=== PATIENT | female | born 1940 | race Caucasian/White ===

== ENCOUNTER 2016-07-18 09:05 | Inpatient (IN) | payer MEDICARE, OTHER ==
[~2016-07-18] VITALS: Ht 170.2 cm; Wt 114.0 kg
[2016-07-18 09:29] VITALS: BP 100/61; PULSE 68; RESP 20; O2SAT 93
[2016-07-18] MEDS ORDERED: ALBU90AE IH (10:08)
[2016-07-18] MEDS ORDERED: MORP30TA PO (10:08)
[2016-07-18] MEDS ORDERED: ZLP10T PO (10:08)
[2016-07-18] MEDS ORDERED: WARF6TAB6 PO (10:08)
[2016-07-18] MEDS ORDERED: FERR-83 PO (10:08)
[2016-07-18] MEDS ORDERED: METO25TA6 PO (10:08)
[2016-07-18] MEDS ORDERED: DIPH25CA6 PO (10:08)
[2016-07-18] MEDS ORDERED: HYDR-3740 PO (10:08)
[2016-07-18] MEDS ORDERED: ATRV10T PO (10:08)
[2016-07-18] MEDS ORDERED: GABA-502 PO (10:08)
[2016-07-18] MEDS ORDERED: LISI-571 PO (10:08)
[2016-07-18] MEDS ORDERED: METF500T4 PO (10:08)
[2016-07-18] MEDS ORDERED: FURO-128 PO (10:08)
[2016-07-18] MEDS ORDERED: CYAN500 PO (10:08)
[2016-07-18] MEDS ORDERED: MORP15TA PO (10:08)
[2016-07-18] MEDS ORDERED: ROPI2TAB3 PO (10:08)
[2016-07-18] MEDS ORDERED: ASPI-973 PO (10:08)
--- NOTE | 2016-07-18 10:17 | ED.REPORT ---
HPI-Hip/Pelvis Prob/Inj Date of Service Jul 18, 2016 ED Provider: Doc,Ed MD The patient is a 76 year old female with history of congestive heart failure, atrial fibrillation on warfarin, hypertension, COPD, and colon cancer, who was brought to the emergency department by EMS for right hip pain. The patient had a ground level fall at home prior to arrival. Her left leg gave out causing her to fall and she landed on her right shoulder/chest and right hip. She did not hit her head or lose consciousness. She was unable to get herself up on her own and remained on the floor until medics arrived. She did not experience dizziness , lightheadedness, chest pain or shortness of breath prior to the fall. She is currently being evaluated by her PCP for chronic left hip pain and lower extremity numbness, and was told she has sciatica. She denies focal weakness, bladder incontinence or bowel incontinence. Nursing Notes Stated Complaint: GLF/HIP PAIN Chief Complaint: Multiple Trauma/Fall Nursing Notes Reviewed: Yes ([employer] reconciled ) Allergies: Coded Allergies: No Known Allergies (Unverified , 07/18/16) Scheduled Aspirin (Aspirin) 81 Mg Tablet 81 MG PO DAILY Atorvastatin (Lipitor) 10 Mg Tab 10 MG PO HS Cyanocobalamin (Vitamin B12) 500 Mcg Tablet 1,000 MCG PO DAILY Ferrous Sulfate (Ferrous Sulfate) 325 Mg Tablet 325 MG PO DAILY Furosemide (Lasix) 40 Mg Tablet 40 MG PO DAILY Gabapentin (Gabapentin) 300 Mg Capsule 300 MG PO DAILY 1 every three days Lisinopril (Lisinopril) 5 Mg Tablet 5 MG PO DAILY Metformin (Metformin) 500 Mg Tablet 500 MG PO Evening Metoprolol Tartrate (Metoprolol Tartrate) 25 Mg Tablet 12.5 MG PO BID Morphine Sulfate (Morphine Sulfate) 30 Mg Tablet 30 MG PO TID Morphine Sulfate (Morphine Sulfate) 15 Mg Tablet 15 MG PO TID Ropinirole (Ropinirole) 2 Mg Tablet 2 MG PO HS Warfarin Sodium (Warfarin Sodium) 6 Mg Tablet 6 MG PO DAILY Scheduled PRN Albuterol Sulfate (Proair Respiclick) 90 Mcg Aer.pow.ba 2 PUFFS IH QID PRN PRN For Shortness of Breath Hydrocodone-Acetaminophen 10-325 mg (Hydrocodone-Acetaminophen 10-325 mg) 1 Each Tablet 2 TABLET PO Q4H PRN PRN For Pain Zolpidem (Ambien) 10 Mg Tablet 10 MG PO HS PRN PRN For Insomnia diphenhydrAMINE HCl (Benadryl) 25 Mg Capsule 25 MG PO PRN . General Time Seen by Provider: 10:33 Chief Complaint Hip injury right Hx Obtained From: Patient, EMS Arrived By: Ambulance Onset Occurred: 1 - 4 hours ago Symptom Duration: Since onset Progression Since Onset: Constant Caused by: Fall on ground Quality: Painful Severity: Current: Moderate Severity: Maximum: Severe Recent Healthcare: No recent hospitalization Similar Sx Previous: No Past Medical History Past Medical History COPD CHF Hypertension Colon cancer Chronic back, hip, and knee pain Sciatica Atrial fibrillation Past Surgical History Lung biopsy Hysterectomy Appendectomy Cholecystectomy Family History Noncontributory Smoking History Unknown if Ever Smoker Social History Other Social History: Local resident Ambulatory Status Independent Review of Systems Musculoskeletal: Reports: Extremity pain, Joint pain Neurologic: Reports: Numbness (left leg), Denies: Bladder dysfunction, Bowel dysfunction, Change LOC, Dizziness, Focal weakness, Headache, Lightheaded, Syncope Complete sys rev & neg: except as marked. Respiratory: Denies: Shortness of breath Cardiovascular: Denies: Chest pain Physical Exam Initial Vital Signs Vital Signs (First) Date Time Temp Pulse Resp B/P Pulse Ox O2 Delivery O2 Flow Rate FiO2 07/18/16 09:29 36.6 68 20 100/61 93 Room Air Initial VS: Reviewed, Vital signs normal ENT: Mucous membranes moist, Conjunctiva normal, No scleral icterus Neck: Supple, Non-tender, Full range of motion Lymphatic: No lymphadenopathy Upper Extremities: Vascular intact, Neuro intact, No swelling, No tenderness Skin: Warm, Dry, No cyanosis Neurologic: Alert, Oriented, Nonfocal Psychiatric: Mood/affect normal, Behavior normal, Normal thought content Lower Extremity / Pelvis / MS: Neurologic intact, Vascular intact Shortened externally rotated right hip with extreme pain with any movement including pain on the right hip with movement of the left leg. She is able to move her left leg off the [place] but this causes pain on the right hip. Intact plantar and dorsiflexion. Sensation intact. Venous stasis changes in both feet with good pulses. General/Constitutional: Awake, Alert In significant pain. Head / Eyes: Atraumatic, Normocephalic, PERRL, EOMI No visible signs of trauma to the head. Respiratory / Chest: Atraumatic, Breath sounds NL, Breath sounds = bilat, No respiratory distress, No rales, No rhonchi, No wheezing, No chest tenderness, No chest wall deformity No bruising or evidence of trauma Cardiovascular: Heart rate NL, Heart sounds NL, No murmurs, No rubs, Peripheral circulation NL, Pulses = bilaterally Heart Rate / Rhythm: Positive: Irregular rhythm Abdomen: Atraumatic, Soft, Non-tender, No guarding, No rebound Interpretation & Diagnostics Lab Results Interpretation Result Diagram: 07/18/16 1112 07/18/16 1112 Test 07/18/16 10:51 07/18/16 11:12 Urine Color Straw (YELLOW) Urine Appearance Hazy (CLEAR,HAZY) Urine pH 5.5 (5.0-8.0) Urine Specific [place] 1.015 (1.003-1.035) Urine Protein Negativemg/dL (NEG,TRACE) Urine Glucose (UA) Negativemg/dL (NEGATIVE) Urine Ketones Negativemg/dL (NEGATIVE) Urine Occult Blood Negative (NEGATIVE) Urine Nitrite Negative (NEGATIVE) Urine Bilirubin Negative (NEGATIVE) Urine Urobilinogen Normalmg/dL (NORMAL) Urine Leukocyte Esterase Negative (NEGATIVE) Urine RBC 0-2/hpf (0-2) Urine WBC 0-5/hpf (0-5) Urine Epithelial Cells Occasional/hpf (NONE-MOD) Urine Crystals None seen (NONE SEEN) Urine Bacteria None/hpf (NONE-FEW) Urine Hyaline Casts 5/20/lpf (NONE) Urine Granular Casts None seen (NONE SEEN) Urine Waxy Casts None seen (NONE SEEN) Urine Red Blood Cell Casts None seen (NONE SEEN) Urine White Blood Cell Casts None seen (NONE SEEN) Urine Mucus Present (None Seen) Urine Trichomonas None seen (NONE SEEN) Urine Yeast None (NONE SEEN) Urinalysis Comment None Urine Culture Reflexed Not indicated White Blood Count 6.8th/mm3 (3.8-10.1) Red Blood Count 4.59mil/mm3 (3.90-5.20) Hemoglobin 12.4g/dL (12.0-15.6) Hematocrit 39.9% (35.0-46.0) Mean Corpuscular Volume 86.9fL (81-100) Mean Corpuscular Hemoglobin 27.0pg (27.0-35.0) Mean Corpuscular Hemoglobin Concent 31.1% (32.0-37.0) Red Cell Distribution Width 15.6% (12.3-15.4) Platelet Count 220bil/L (150-400) Neutrophils (%) (Auto) 69.6% (40-74) Lymphocytes (%) (Auto) 19.2% (14-46) Monocytes (%) (Auto) 7.7% (4-12) Eosinophils (%) (Auto) 2.7% (0-5) Basophils (%) (Auto) 0.4% (0-3) Prothrombin Time 27.2sec (8.1-12.5) Prothromb Time International Ratio 2.50ratio Sodium Level 140mEq/L (134-144) Potassium Level 4.1mEq/L (3.5-5.2) Chloride Level 101mEq/L (97-108) Carbon Dioxide Level 26mmol/L (18-29) Blood Urea Nitrogen 36mg/dL (8-27) Creatinine 1.13mg/dL (0.57-1.00) Estimat Glomerular Filtration Rate 67mL/min (>59) Glucose Level 102mg/dL (60-99) Calcium Level 9.4mg/dL (8.5-10.1) Total Bilirubin 0.8mg/dL (0.0-1.2) Aspartate Amino Transf (AST/SGOT) 36U/L (0-50) Alanine Aminotransferase (ALT/SGPT) 20U/L (0-32) Alkaline Phosphatase 202U/L (25-165) Total Creatine Kinase 101U/L (21-215) Total Protein 6.0g/dL (6.4-8.4) Albumin 3.6g/dL (3.4-5.0) Hold Javed Top Tube Received (Received) Lab Results Interpretation: CBC normal CMP normal INR elevated (therapeutic INR) ECG Interpretation ECG Interpretation: Atrial fibrillation with a rate of 63 Time: 11:01 Interpreted by: ED physician X-Ray Chest Interpretation Chest Xray Interpretation: IMPRESSION: No acute cardiopulmonary disease process. Dictated by: Daniela Diane MD, PhD on 07/18/2016 at 10:43 Interpretation / Wet Read by: Interpret - Radiologist X-Ray Interpretation Xray Interpretation: IMPRESSION: Right subtrochanteric femur fracture. Dictated by: Daniela Diane MD, PhD on 07/18/2016 at 10:42 X-Ray Ordered: Hip right Interpretation / Wet Read by: Interpret - Radiologist Re-Eval/Medical Decision Med Decision/Clinical Course This is a 76-year-old female chronic atrial fibrillation on warfarin who suffered a fall and now complains of right hip pain. She reports the reason for the fall is that over the past 2 weeks she has developed what sounds like sciatica with pain in the left buttock down the left leg with some associated numbness, and today her left leg "gave out" and she fell landing on her right hip. Reports she struck her right shoulder on the way down but does not have any pain or discomfort there-allover pain is in the right hip. She has chronic severe right hip pain and is on opiates routinely, she also has spinal stenosis. She denies bowel or bladder dysfunction. She denies striking her head, she has no neck pain, she denies chest pain or shortness of breath. On exam she has focal findings a right hip fracture, no overt deficits in the left leg are appreciated. She is in rate controlled atrial fibrillation. Radiographs demonstrated right intertrochanteric hip fracture. Case has been discussed with orthopedics, given the patient's anticoagulated reversal's warranted. Given the patient's age and anticoagulant status with new onset sciatica MRI imaging or lumbar spine is anticipated and this been ordered. The patient requires admission for continued management. Surgery for the hip is anticipated for tomorrow, patient can eat up until midnight tonight. Case is discussed with the hospitalist, vincent talbot pain medicine in the department for improved pain control. Grove has been placed. Source of Hx: Old records, EMS Re-Evaluation/Progress : Time of Eval: 10:52 Re-Evaluation/Progress Note: Rechecked the patient. Discussed results, diagnosis, and plan for admission. All questions were addressed. Consultation #1: Referral / Consult Name: Sourav Calvin DO Consulted With: Orthopedic Call Returned at: 10:45 Senior Technical Editor: Will see patient, Agrees with eval, Agrees with plan Consultation #2: Referral / Consult Name: Megan Crespo DO Consulted With: Hospitalist Call Returned at: 11:51 Senior Technical Editor: Will see patient, Agrees with eval, Agrees with plan, Accepts admit Counseled Regarding: Diagnosis, Lab results, Need for admission Discharge & Departure Impression: Primary Impression: Subtrochanteric fracture of femur Encounter type: initial encounter Fracture type: closed Fracture alignment : displaced Laterality: right Qualified Code: S72.21XA - Displaced subtrochanteric fracture of right femur, initial encounter for closed fracture Additional Impressions: Fall from ground level Left sided sciatica Anticoagulated on warfarin Atrial fibrillation, chronic Disposition: ADMITTED TO HOSPITAL Discharge Condition All VS Reviewed: Yes Condition: Stable Referrals: Arabella Ball (PCP) Martha Cantu MD Attestation Portions of this note were transcribed by Megan Combs. I, Dr. Cummings personally performed the history, physical exam and medical decision-making; I reviewed and confirmed the accuracy of the information in the transcribed note. Signed by: Dania Hamilton, 07/18/2016 at 1200. copies to: Arabella Ball; Martha Cantu MD, Matthew F MD Jul 18, 2016 10:17 Megan Combs Jul 18, 2016 10:38
[2016-07-18] MEDS ORDERED: Ondansetron 2 mg/mL 2 mL Inj IVPUSH ONE (10:30)
[2016-07-18] MEDS: HYDROmorphone 0.5 mg/0.5 mL iSecure Syringe IVPUSH PRN ×2 (10:35→10:53)
--- NOTE | 2016-07-18 10:45 | DRSVH ---
PROCEDURE: X-RAY PELVIS W/LAT HIP (RT) ([id number]) INDICATIONS: fall; rt hip pain TECHNIQUE: AP pelvis with lateral view(s) of the right hip(s). COMPARISON: None. FINDINGS: Bones: Displaced right subtrochanteric hip fracture noted. Bilateral hip osteoarthritic degenerative changes are noted. Pelvic ring appears intact. No suspicious bony lesions. Soft tissues: The visualized bowel gas pattern is normal. No suspicious soft tissue calcifications. Bilateral groin surgical clips noted. IMPRESSION: Right subtrochanteric femur fracture. Dictated by: Daniela Diane MD, PhD on 07/18/2016 at 10:42 Approved by: Daniela Diane MD, PhD on 07/18/2016 at 10:43
--- NOTE | 2016-07-18 10:46 | DRSVH ---
PROCEDURE: X-RAY CHEST ONE VIEW ([id number]) INDICATIONS: HIP FRACTURE TECHNIQUE: One view of the chest was acquired. COMPARISON: [facility], CR, XR CHEST 1V PORTABLE, 03/25/2016, 1:24 AM. [facility], CT, CT BIOPSY LUNG, 06/10/2016, 1:47 PM. [facility], CR, XR CHEST 1V PORTABLE , 06/11/2016, 7:41 AM. FINDINGS: Surgical changes and devices: Surgical clips at the gastroesophageal junction. Lungs and pleura: No pleural effusions or pneumothorax. Lungs are clear. Elevation of the right hem idiaphragm is stable compared to prior examination. Mediastinum: Mediastinal contours appear normal. Heart size is normal. Bones and chest wall: No suspicious bony lesions. Overlying soft tissues appear unremarkable. IMPRESSION: No acute cardiopulmonary disease process. Dictated by: Daniela Diane MD, PhD on 07/18/2016 at 10:43 Approved by: Daniela Diane MD, PhD on 07/18/2016 at 10:44
[2016-07-18] MEDS ORDERED: Lidocaine 2% 5 mL Urojet Topical Jelly Syringe MUC_MEMBRM ONE (10:50)
[2016-07-18] MEDS ORDERED: LIDOCAINE 2% MUC_MEMBRM ONE (10:55)
[2016-07-18] MEDS: HYDROmorphone 1 mg/mL Inj IVPUSH PRN ×3 (11:04→17:47)
[2016-07-18 11:34] LABS: BASOPHILS % (AUTO) 0.4 % (0-3); EOSINOPHILS % (AUTO) 2.7 % (0-5); MONOCYTES % (AUTO) 7.7 % (4-12); Mean Corpuscular Volume 86.9 fL (81-100); NEUTROPHILS % (AUTO) 69.6 % (40-74); Platelet Count 220 bil/L (150-400)
[2016-07-18 11:47] LABS: INR 2.5 ratio
[2016-07-18 11:49] LABS: APPEARANCE,URINE HAZY (CLEAR,HAZY); COLOR,URINE STRAW (YELLOW); OCCULT BLOOD,URINE NEGATIVE (NEGATIVE); PH,URINE 5.5 (5.0-8.0); UROBILINOGEN,URINE NORMAL (NORMAL)
[2016-07-18] MEDS ORDERED: 0.9% Sodium Chloride 250 ML IV ONE (12:10)
[2016-07-18] MEDS ORDERED: Phytonadione (Adult) 10 mg/1 mL Inj PO ONE (12:15)
[2016-07-18] MEDS ORDERED: Phytonadione (Adult) 10 MG in Dextrose 5%-Pha MIX 50 ML IV ONE (12:15)
[2016-07-18] MEDS ORDERED: Polyethylene Glycol (PEG) 17 Gm Powder PO PRN (12:25)
[2016-07-18] MEDS ORDERED: Ondansetron 2 mg/mL 2 mL Inj IVPUSH PRN (12:25)
[2016-07-18] MEDS ORDERED: Alum-Mag Hydrox-Simeth 30 mL Suspension PO PRN (12:25)
[2016-07-18] MEDS ORDERED: Albuterol 2.5 mg/3 mL Inhalation Solution NEB PRN (12:40)
[2016-07-18] MEDS ORDERED: HYDROcodone-APAP 10-325 mg PO PRN (12:40)
--- NOTE | 2016-07-18 12:54 | PCM.HPMED ---
Subjective Date of Service Jul 18, 2016 Primary Provider: Admitting Physician: Megan Crespo DO Primary Care Physician: Arabella Ball Attending Physician: Megan Crespo DO Chief Complaint: R subtrochanteric femur fracture History of Present Illness: This is a pleasant 76-year-old female with past medical history of A. fib for which she is currently on Coumadin, diabetes mellitus type II for which she is not on any particular diet, CAD, CHF, hypertension, COPD, chronic pain medication usage due to chronic pain syndrome is presenting with right hip subtrochanteric femoral fracture as seen on x-ray of pelvis in the ER. She states that she has had issues with left leg and sciatica for a long time now and she was trying to walk and fell on her right side. Pain was 10 out of 10 but in the ER it was 8 out of 10. Fell on her right side shoulder and chest were affected as well. She usually tries to walk with a walker at home. Lives with son and his family. She says that she has suffered several falls but none as bad as this one and also none in the last 6 months. In the ER INR was 2.5 vitamin K by mouth 10 mg was given chest x-ray was showed no acute disease EKG showed rate controlled A. fib. MRI of lumbar spine showed scoliosis, Grade I L3-L4 and L4-5 degenerative spondylolisthesis. ,Multilevel degenerative disc disease, Multilevel facet arthropathy. Severe L4- L5 central canal stenosis. Moderate to severe L3-L4 central canal narrowing. Moderate L5-S1 central are present mild L1-L2 and L2-L3 central canal narrowing. Severe right and moderate severe left L4-L5 neural foramen. Severe right and mild left L5-S1 neural foraminal narrowing. Moderate bilateral L2-L4 neural foraminal narrowing. Mild bilateral L1-L2 and L2-L3 neuroforaminal narrowing. L2-L3 and L4-L5 disc annulus fissures. Fluid signal in the L3-L4 disc space likely representing a reactive change, however finding is nonspecific and correlation with clinical laboratory data is recommended to exclude a very early manifestation of discitis. CBC and CMP are within normal. Vital signs are stable. Patient is admitted to the [facility] team for medical management of her right femur subtrochanteric fracture with orthopedic consult. Review of Systems: Patient denies urinary symptoms states that she is often constipated. She denies recent fevers chills or recent weight loss or weight gain. She denies numbness in her lower extremities. All other review of systems negative except as stated here Allergies Coded Allergies: No Known Allergies (Unverified , 07/18/16) Home Medications Medications include aspirin, vitamin B12, vitamin supplements, Benadryl, Lasix, lisinopril, metoprolol, metformin, ropinirole, Coumadin, Ambien, gabapentin, albuterol, morphine sulfate extended release, Narco and Xanax. PMH Atrial fibrillation on Coumadin, DM 2, CAD, insomnia, CHF, hypertension, COPD, constipation, recurrent UTIs spinal stenosis, DJD Surgical History Lung biopsy, cystectomy, appendectomy, cholecystectomy Social History Hx Alcohol Use: No Hx Tobacco Use: Yes Smoking Status: Light Tobacco Smoker, Unknown if Ever Smoker Living Arrangement: with Family (visit son and his family) Exam Vital Signs Vital Sign - Last Date Time Temp Pulse Resp B/P Pulse Ox O2 Delivery O2 Flow Rate FiO2 07/18/16 09:29 36.6 68 20 100/61 93 Room Air Exam Gen.: No acute distress, obese HEENT: Normocephalic/atraumatic Heart: Regular rate and rhythm no S3-S4 Lungs clear to auscultation anteriorly crackles or wheezes Abdomen: Soft, nontender, normal bowel sounds Extremities: Trace edema is present Neuro: No focal deficits Lab and Diagnostics Result Diagram: 07/18/16 1112 07/18/16 1112 X-Rays, CTs and MRIs [facility] Diagnostic Imaging Department [place], [place] [id number] Patient Name: ANNABEL HUGHES MR#: [id number] Location: [facility] [place] Ordering Phys: Bryant Cummings MD Date of Service: 07/18/16 1047 PROCEDURE: MRI LUMBAR SPINE WITHOUT CONTRAST ([id number]) INDICATIONS: New L Sciatica, anticoagulated TECHNIQUE: Noncontrast sagittal T1 spin echo and T2 fast echo, sagittal STIR, axial T1 and T2 fast spin echo through the lumbar spine. In cases with scoliosis, additional coronal T2 fast spin echo may be performed. COMPARISON: None. FINDINGS: Image quality: Excellent. Alignment and Curvature: There is trace L3 on L4 and L4-L5 retrolisthesis. There is convex right curvature of the lumbar spine; recommend correlation with weight-bearing plain film radiographs to exclude scoliosis. Bone Marrow: Changes noted adjacent to the L2-L3, L3-L4, L4-L5 and L5-S1 discs.. No acute vertebral body compression fractures. Spinal Cord: Conus medullaris terminates at the L1 level. Visualized cord demonstrates normal signal and size. Paraspinous Soft Tissues: No paravertebral masses. L1-L2: Loss of disc signal. Mild bilateral facet hypertrophy. Moderate ligamentum flavum hypertrophy. Mild narrowing of the central canal secondary to disc disease mild bilateral neural foraminal narrowing secondary to disc and facet disease. No neural impingement. L2-L3: Loss of disc signal. Minimal, diffuse disc bulge. Moderate facet and moderate ligamentum flavum hypertrophy. Mild to moderate narrowing of the central canal secondary to disc disease and posterior element hypertrophy. Mild bilateral neuroforaminal narrowing secondary to disc and facet disease. No neural impingement. Focal high density zone in the anterior annulus compatible with a fissure. L3-L4: Loss of disc signal and height. Moderate, diffuse disc bulge. Moderate facet and moderate ligamentum flavum hypertrophy. Moderate to severe narrowing of the central canal secondary to disc disease and posterior element hypertrophy. Moderate bilateral neuroforaminal narrowing secondary to disc and facet disease. Fluid signal noted in the intervertebral disc space which can represent reactive change versus earliest manifestation of discitis; please correlate clinical and laboratory data. L4-L5: Loss of disc signal. Mild, diffuse disc bulge. Large central disc protrusion superimposed on diffuse disc bulge. Moderate facet and moderate ligamentum flavum hypertrophy. Severe central stenosis secondary to disc disease and posterior element hypertrophy. Severe right and [id number] left neural foraminal narrowing secondary to disc and facet disease. Focal high density zone in the anterior annulus compatible with a fissure. L5-S1: Loss of disc signal. Mild, diffuse disc bulge with small central disc protrusion superimposed on diffuse disc bulge. Severe facet and moderate ligamentum flavum hypertrophy. Moderate narrowing of the central canal secondary to disc disease and posterior element hypertrophy. Severe right and mild left neural foraminal narrowing secondary to disc and facet disease. IMPRESSION: 1. Convex right curvature recommend weight-bearing plain film radiographs of the lumbar spine when clinically feasible to exclude scoliosis. 2. Grade I L3-L4 and L4-5 degenerative spondylolisthesis. 3. Multilevel degenerative disc disease. 4. Multilevel facet arthropathy. 5. Severe L4-L5 central canal stenosis. Moderate to severe L3-L4 central canal narrowing. Moderate L5-S1 central are present mild L1-L2 and L2-L3 central canal narrowing. 6. Severe right and moderate severe left L4-L5 neural foramen. Severe right and mild left L5-S1 neural foraminal narrowing. Moderate bilateral L2-L4 neural foraminal narrowing. Mild bilateral L1-L2 and L2-L3 neuroforaminal narrowing. 7. L2-L3 and L4-L5 disc annulus fissures. 8. Fluid signal in the L3-L4 disc space likely representing a reactive change, however finding is nonspecific and correlation with clinical laboratory data is recommended to exclude a very early manifestation of discitis. Dictated by: Daniela Diane MD, PhD on 07/18/2016 at 15:04 Approved by: Daniela Diane MD, PhD on 07/18/2016 at 15:12 [facility] [place] [address] Patient Name: ANNABEL HUGHES MR#: [id number] [place] [facility] [place]ing Phys: Bryant Cummings MD Date of Service: 07/18/16 1013 PROCEDURE: X-RAY CHEST ONE VIEW ([id number]) INDICATIONS: HIP FRACTURE TECHNIQUE: One view of the chest was acquired. COMPARISON: [facility], CR, XR CHEST 1V PORTABLE, 03/25/2016, 1: 24 AM. [facility], CT, CT BIOPSY LUNG, 06/10/2016, 1:47 PM. [facility], CR, XR CHEST 1V PORTABLE, 06/11/2016, 7:41 AM. FINDINGS: Surgical changes and devices: Surgical clips at the gastroesophageal junction. Lungs and pleura: No pleural effusions or pneumothorax. Lungs are clear. Elevation of the right hemidiaphragm is stable compared to prior examination. Mediastinum: Mediastinal contours appear normal. Heart size is normal. Bones and chest wall: No suspicious bony lesions. Overlying soft tissues appear unremarkable. IMPRESSION: No acute cardiopulmonary disease process. Dictated by: Daniela Diane MD, PhD on 07/18/2016 at 10:43 Approved by: Daniela Diane MD, PhD on 07/18/2016 at 10:44 [facility] Diagnostic [place] [address] Patient Name: ANNABEL HUGHES MR#: [id number] [place] [facility] [place]ing Phys: URIAH TIMMONS MD Date of Service: 07/18/16 0953 PROCEDURE: X-RAY PELVIS W/LAT HIP (RT) ([id number]) INDICATIONS: fall; rt hip pain TECHNIQUE: AP pelvis with lateral view(s) of the right hip(s). COMPARISON: None. FINDINGS: Bones: Displaced right subtrochanteric hip fracture noted. Bilateral hip osteoarthritic degenerative changes are noted. Pelvic ring appears intact. No suspicious bony lesions. Soft tissues: The visualized bowel gas pattern is normal. No suspicious soft tissue calcifications. Bilateral groin surgical clips noted. IMPRESSION: Right subtrochanteric femur fracture. Dictated by: Daniela Diane MD, PhD on 07/18/2016 at 10:42 Approved by: Daniela Diane MD, PhD on 07/18/2016 at 10:43 12-lead ECG Rate controlled A. fib Cardiac Echo Impressions Cardiac echo is pending Assessment & Plan Assessment #1 right femur subtrochanteric fracture as evidenced by the x-ray: -- Consult orthopedics. They may take patient to work tomorrow a.m. -- Pain control with Dilaudid pump initial settings were increased due to patient's findings on the scans as well as due to her high tolerance for pain medications -- INR is 2.5 in the ER vitamin K by mouth 10 mg is given, follow-up INR is only 2.4 slightly better. She is given 2 units of FFP -Echocardiogram is ordered due to prior cardiac history results is also pending -- Nothing by mouth diet after midnight -- Plan to recheck INR tomorrow. Consider giving more FFP as needed Chronic conditions: Severe central canal stenosis as evidenced by the lumbar MRI: -- We will discuss this findings with orthopedics tomorrow a.m. Chronic pain syndrome: -- Most likely due to the above findings as evidenced by the lumbar MRI. -- Patient is not very clear on how frequently she takes her home morphine most of which is i--IR formulation. She states that she did not fill them recently because she does not take them all the time. -- Dilaudid pump as above Anxiety: Continue Xanax home with home medication Chronic atrial fibrillation: Hold Coumadin Chronic hypertension -- Continue home medications. Tomorrow a.m. hold medications except metoprolol CAD: -- Continue home medications. Hold all medications except metoprolol -- Echo is pending as above COPD: -- Plan to continue home medications DM 2: -- She declined diabetic diet disease on general diet -- Sliding scale low coverage Plan to continue most of her home medications with the exception of aspirin and warfarin. The surgery Pain Evaluation: Adequate Pain Control VTE Prophylaxis Indicated: Contraindicated VTE Mechanical Devices: Intermittant Pneumatic CD, Anti-Embolic stockings Resuscitation Status: CPR: Attempt Resuscitation Megan Crespo DO Jul 18, 2016 12:54
[2016-07-18] MEDS ORDERED: Glucose 40% Oral Gel 15 Gm Tube PO PRN (12:55)
[2016-07-18 13:51] VITALS: BP 124/56; PULSE 77; RESP 20; O2SAT 93
--- NOTE | 2016-07-18 15:14 | DRSVH ---
PROCEDURE: MRI LUMBAR SPINE WITHOUT CONTRAST ([id number]) INDICATIONS: New L Sciatica, anticoagulated TECHNIQUE: Noncontrast sagittal T1 spin echo and T2 fast echo, sagittal STIR, axial T1 and T2 fast spin echo thr ough the lumbar spine. In cases with scoliosis, additional coronal T2 fast spin echo may be performe d. COMPARISON: None. FINDINGS: Image quality: Excellent. Alignment and Curvature: There is trace L3 on L4 and L4-L5 retrolisthesis. There is convex right cur vature of the lumbar spine; recommend correlation with weight-bearing plain film radiographs to exclu de scoliosis. Bone Marrow: Changes noted adjacent to the L2-L3, L3-L4, L4-L5 and L5-S1 discs.. No acute vertebral body compression fractures. Spinal Cord: Conus medullaris terminates at the L1 level. Visualized cord demonstrates normal signa l and size. Paraspinous Soft Tissues: No paravertebral masses. L1-L2: Loss of disc signal. Mild bilateral facet hypertrophy. Moderate ligamentum flavum hypertrophy. Mild narrowing of the central canal secondary to disc disease mild bilateral neural foraminal narrow ing secondary to disc and facet disease. No neural impingement. L2-L3: Loss of disc signal. Minimal, diffuse disc bulge. Moderate facet and moderate ligamentum flavu m hypertrophy. Mild to moderate narrowing of the central canal secondary to disc disease and posterio r element hypertrophy. Mild bilateral neuroforaminal narrowing secondary to disc and facet disease. N o neural impingement. Focal high density zone in the anterior annulus compatible with a fissure. L3-L4: Loss of disc signal and height. Moderate, diffuse disc bulge. Moderate facet and moderate liga mentum flavum hypertrophy. Moderate to severe narrowing of the central canal secondary to disc diseas e and posterior element hypertrophy. Moderate bilateral neuroforaminal narrowing secondary to disc an d facet disease. Fluid signal noted in the intervertebral disc space which can represent reactive milagros nge versus earliest manifestation of discitis; please correlate clinical and laboratory data. L4-L5: Loss of disc signal. Mild, diffuse disc bulge. Large central disc protrusion superimposed on d iffuse disc bulge. Moderate facet and moderate ligamentum flavum hypertrophy. Severe central stenosis secondary to disc disease and posterior element hypertrophy. Severe right and incryuvx-[id number]-wtfqnk lef t neural foraminal narrowing secondary to disc and facet disease. Focal high density zone in the ante rior annulus compatible with a fissure. L5-S1: Loss of disc signal. Mild, diffuse disc bulge with small central disc protrusion superimposed on diffuse disc bulge. Severe facet and moderate ligamentum flavum hypertrophy. Moderate narrowing of the central canal secondary to disc disease and posterior element hypertrophy. Severe right and mild left neural foraminal narrowing secondary to disc and facet disease. IMPRESSION: 1. Convex right curvature recommend weight-bearing plain film radiographs of the lumbar spine when cl inically feasible to exclude scoliosis. 2. Grade I L3-L4 and L4-5 degenerative spondylolisthesis. 3. Multilevel degenerative disc disease. 4. Multilevel facet arthropathy. 5. Severe L4-L5 central canal stenosis. Moderate to severe L3-L4 central canal narrowing. Moderate L5 -S1 central are present mild L1-L2 and L2-L3 central canal narrowing. 6. Severe right and moderate severe left L4-L5 neural foramen. Severe right and mild left L5-S1 neura l foraminal narrowing. Moderate bilateral L2-L4 neural foraminal narrowing. Mild bilateral L1-L2 and L2-L3 neuroforaminal narrowing. 7. L2-L3 and L4-L5 disc annulus fissures. 8. Fluid signal in the L3-L4 disc space likely representing a reactive change, however finding is non specific and correlation with clinical laboratory data is recommended to exclude a very early manifes tation of discitis. Dictated by: Daniela Diane MD, PhD on 07/18/2016 at 15:04 Approved by: Daniela Diane MD, PhD on 07/18/2016 at 15:12
[2016-07-18] MEDS ORDERED: HYDROmorphone 1 mg/mL Inj IVPUSH PRN (15:40)
[2016-07-18] MEDS ORDERED: HYDROcodone-APAP 5-325 mg Tablet PO PRN (15:45)
[2016-07-18 16:30] LABS: INR 2.46 ratio
[2016-07-18] MEDS: Insulin LISPRO 300 Unit/3 mL Inj SUBQ SCH ×2 (17:30→22:00)
[2016-07-18 17:31] VITALS: PULSE 63
[2016-07-18 18:14] VITALS: BP 92/47; PULSE 61; RESP 16; O2SAT 89
--- NOTE | 2016-07-18 18:24 | NUR ---
Admission Pt to floor at 1330 from ED with hip fx. Report from Gloria Prieto RN. Pt on gurney and slide board used to transfer pt to bed. Pt still has sheets under her and declined to have them removed because she didn't want to turn with fx. Pt on RA, s/l. Multiple bruises on arms. Pain under control / medication given in ED. Pt declined ice pack stating "ice doesn't work for me."
--- NOTE | 2016-07-18 18:31 | NUR ---
Pain/BG Pt having 10/10 pain continually despite multiple medications given. Is in room with eyes closed and resting comfortably until awoken then is crying and writhing in pain saying how much it hurts. aware and is adjusting medications. Surgery time for tomorrow is not known, but pt is to be NPO after midnight. Pt's dinner time BG was 152, but pt refused insulin. Educated pt that she will have better surgical outcome with controlled sugars, but pt still refused. Addendum: 07/18/16 at 1927 by DAVION AKHTAR RN BP Pt had low BP and this was immediately after given IV pain meds. Pt connected to [employer] for low O2 sats, but pt does have COPD.
[2016-07-18] MEDS ORDERED: 0.9% Sodium Chloride 250 ML IV PRN (18:35)
[2016-07-18] MEDS ORDERED: 0.9% Sodium Chloride 100 ML ONE (19:58)
[2016-07-18 20:30] VITALS: BP 107/58; PULSE 59; RESP 16
[2016-07-18 21:06] VITALS: PULSE 58
--- NOTE | 2016-07-18 23:29 | CONS ---
[address] [address] CONSULTATION REPORT PATIENT: ANNABEL HUGHES : 1940 MR#: [id number] ADMIT: 07/18/2016 JOB ID: [id number] INFECTIOUS DISEASES FOLLOWUP: DATE OF SERVICE: 07/18/[address] Calvin for this timely consult. 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 HISTORY OF THE PRESENT ILLNESS: The patient is an unfortunate 76-year-old woman who recently moved here from [place]. In the last summer, while in [place], she was evaluated for cough and shortness of breath and, as part of that evaluation, was found to have numerous pulmonary nodules. One of these was biopsied and was positive for histoplasmosis by special stains on the histopathology. As this was felt to be self-limited, no specific therapy was offered. The patient's subsequently moved to this area to reside near a family member. After her move here, she developed bright-red blood per rectum and a colonoscopy made the diagnosis of colon cancer. She has not yet been treated for the colon cancer, but there are plans underway to start chemo and radiation in the very near future. I have seen the patient twice in my outpatient ID clinic for evaluation of possible continued pulmonary histoplasmosis and the possible need for treatment for histoplasmosis. The patient's biopsy back last summer was done in [place], [place], and she had a recent biopsy done in our area. The two samples, the positive histo sample from November and the new biopsy done within the past couple of weeks, were evaluated by the pathology group in [place]. They concurred with the diagnosis from the needle biopsy of the lung last summer that had been done in [place], [place], but found no evidence of any microorganisms in the biopsy done recently here. I personally have discussed this with the pathologist in [place]. Both the orchard hand, oncologist, and I separately ordered urine histoplasma antigen lately and these are both negative. Keep in mind this is a specific, but not terribly sensitive test. At the time of my last outpatient visit with the patient yesterday, she was feeling reasonably well and without evidence of fever or pulmonary infection. At the conclusion of our visit, after reviewing the literature and discussing this with other ID specialists, we decided to start on a treatment with itraconazole 200 mg p.o. b.i.d. as we felt there was still a significant risk of some residual pulmonary histo that could be "reactivated" by chemo and radiation. I provided the patient with prescriptions yesterday, but she has not had an opportunity to pick them up so far. I also recommended she lower her Coumadin dose by half as there is an interaction between itraconazole and Coumadin and that she will need to have her INR checked on a weekly basis to be very careful with these medication interactions. I also warned her that itraconazole may potentiate the effects of oral opiates she takes. Unfortunately, this morning, the patient was walking to her bathroom at her home using a walker when her left knee gave out on her and she twisted and fell in an awkward motion fracturing her right hip. This has led to her admission today. I am seeing the patient in the hospital today just to clarify what is going on in terms of her histoplasmosis. Today, the patient reports no fevers, chills, cough, shortness of breath, or sore throat. She does have severe right hip pain. PAST MEDICAL HISTORY: 1. Diabetes mellitus. 2. COPD. 3. Hypertension. 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 5. Colon cancer, awaiting treatment. 6. Severe left sciatica. 7. Organic heart disease. a. Congestive heart failure. b. Atrial fibrillation. 8. History of pulmonary embolism. 9. COPD. SOCIAL HISTORY: The patient is not currently a smoker or a drinker. She recently moved to this area from [place]. FAMILY HISTORY: The patient does have a distant family history of tuberculosis and, because of that, we did check a QuantiFERON Gold which was negative. She had reported that her father had been treated for tuberculosis as a young man, but we do note that she has a negative QuantiFERON Gold and that recent biopsies of the lung did not show any evidence of tuberculosis. REVIEW OF SYSTEMS: Was done. The patient today has no headache, sore throat, cough, or shortness of breath. She is having tremendous pain in her right hip. No nausea, vomiting, or diarrhea. Obviously, she cannot stand or walk due to her fractured hip which is scheduled to be repaired tomorrow. Remainder of the review of systems noncontributory. PHYSICAL EXAMINATION: VITAL SIGNS: Physical exam reveals an afebrile woman lying supine in her hospital bed. Temp 36.4, pulse 77, respiratory rate 20, blood pressure 124/56, saturating 93% on room air. GENERAL: She is in obvious pain due to her hip, but her mental status is otherwise clear. HEENT: Oral cavity is negative. Eyes without conjunctivitis. NECK: Supple. LUNGS: Fairly clear with her supine. She cannot sit up or roll over because of her hip. CARDIAC TONES: Irregular rate and rhythm. ABDOMEN: Obese, soft, and nontender. No organomegaly. EXTREMITIES: Her right hip was examined. There is no external evidence of the injury, but it is tender obviously and I do not make any attempt whatsoever to move the hip for obvious reasons. She has no appreciable skin rash, no significant peripheral edema. NEUROLOGIC: Exam is difficult because of her fracture, but seems intact. LABORATORIES: Include white count 6800. Diff is normal. Platelets normal at 220. Creatinine 1.13. INR is 2.5 because she is on chronic Coumadin. LFTs normal. Albumin 3.6. Her alk phos is up to 202. Urinalysis without white cells. Her chest x-ray shows no acute cardiopulmonary disease. Note that you can see on CT scan, however, pulmonary nodules and these have been present at least for several months. The x-ray of her hip shows a right subtrochanteric fracture. An MRI scan of the back was done and this shows degenerative disease with severe L4-5 canal stenosis and narrowing elsewhere. Fluid is seen in the L3-4 disk space which could represent a reactive change and is nonspecific. IMPRESSION: This is a difficult case of a woman who has multiple medical problems and last summer was diagnosed with acute pulmonary histoplasmosis while in her [place]. The decision was made not to treat this as histo often resolves without therapy and I assume that was the rationale in this case. The patient subsequently came to live here and was diagnosed with colon cancer, which is scheduled to start treatment very soon. I have seen her twice in clinic and discussed this case with her oncologist as well as other ID doctors and we have arrived at the decision that, even though a followup biopsy of her lung done in May was negative, we should go ahead and "cover her" with itraconazole while we give her the cancer chemotherapy and treatment as there is a chance that the histo is still there and will reactivate even though it is not seen on a repeat biopsy nor is it seen in the urine histo antigen. RECOMMENDATIONS: 1. Itraconazole 200 mg p.o. b.i.d. will be started today. 2. Once the patient restarts her Coumadin for her atrial fibrillation, the dose will need to be lowered and she has been chronically on 6 mg of Coumadin a day, so it is probably reasonable to start a somewhat lower dose as we work our way back up. 3. Will need an itraconazole level in a couple of weeks and I will be taking care of that as an outpatient. 4. The patient will need weekly INR measurements as she will be on Coumadin and itraconazole, which is a risk factor for over anticoagulation. 5. Pain meds may need to be adjusted downward as we get going with the itraconazole as it will potentiate or prolong the effect of narcotics.
[2016-07-19] VITALS (20 sets, daily range): BP systolic 95–133; BP diastolic 46–78; PULSE 53–91; RESP 13–20; O2SAT 90–98
[2016-07-19] MEDS: HYDROmorphone PCA 0.2 mg/mL 30 mL Inj IV PRN (00:11)
--- NOTE | 2016-07-19 00:41 | CONS ---
[address] [address] CONSULTATION REPORT PATIENT: ANNABEL HUGHES : 1940 MR#: [id number] ADMIT: 07/18/2016 JOB ID: [id number] DATE OF SERVICE: 07/18/2016 CHIEF COMPLAINT: Right hip pain. HISTORY OF PRESENT ILLNESS: The patient is a 76-year-old female who was walking in her home when her left hip gave way causing her to fall onto her right side and she sustained a right hip fracture. She had onset of severe acute pain and was unable to ambulate after the fall. She normally walks with a walker due to severe left hip degenerative arthritis. She lives with her son and also has plans to start chemo and radiation for colon cancer in the next few weeks. PAST MEDICAL HISTORY: Significant for: 1. Atrial fibrillation and anticoagulation, on Coumadin. 2. Left-sided sciatica. 3. Colon cancer. ALLERGIES: No known drug allergies. PHYSICAL EXAMINATION: Vital signs: Blood pressure 124/56, pulse rate 77, respirations 20, temperature 36.4, O2 sat 93% on room air. General: She is alert and cooperative, in some distress secondary to her right hip. Extremities: Her skin overlying the right hip is intact. She is able to move her toes and her foot is warm, pink, and well perfused. No calf pain or tenderness. Capillary refill less than 3 seconds. She has shortened externally rotated right lower extremity. Her left hip has pain with internal-external rotation radiating into the groin. LABORATORY EVALUATION: Significant for an elevated INR of 2.5. X-rays demonstrate a right subtrochanteric femur fracture with severe right hip degenerative arthritis bone on bone with collapse of the femoral head. ASSESSMENT: Right subtrochanteric femur fracture. PLAN: We discussed treatment options for this and I recommend a right hip intramedullary nail and we will plan for this tomorrow after reversal of her anticoagulation with Coumadin assuming she is medically stable for surgery.
--- NOTE | 2016-07-19 04:11 | NUR ---
FFP Patient received 2 units of FFP this shift. Patients last INR was 2.46. Patient has SECURITY SME Dilaudid for pain. Encouraging patient to use SECURITY SME if experiencing pain, but patient dozing in and out of sleep, not using the SECURITY SME much despite teaching. Patient's blood sugar has been stable, 82 at 2200 and 135 at 0300. Patient has been NPO since midnight.
[2016-07-19 05:04] LABS: BASOPHILS % (AUTO) 0.2 % (0-3); EOSINOPHILS % (AUTO) 3.3 % (0-5); MONOCYTES % (AUTO) 10.3 % (4-12); Mean Corpuscular Hemoglobin 27.4 pg (27.0-35.0); Mean Corpuscular Volume 88.1 fL (81-100); NEUTROPHILS % (AUTO) 64.5 % (40-74); Platelet Count 188 bil/L (150-400)
[2016-07-19] MEDS ORDERED: Ondansetron 2 mg/mL 2 mL Inj ONE (05:52)
[2016-07-19] MEDS ORDERED: Neostigmine 1 mg/mL 10 mL Inj ONE (05:52)
[2016-07-19] MEDS ORDERED: fentaNYL-PF 50 mCg/mL 2 mL Inj ONE (05:52)
[2016-07-19] MEDS ORDERED: Rocuronium 10 mg/mL 5 mL Inj ONE (05:52)
[2016-07-19] MEDS ORDERED: Glycopyrrolate 0.2 MG/ML 1mL Inj ONE (05:52)
[2016-07-19] MEDS ORDERED: Phenylephrine/NS 100 mCg/mL 10 mL Syringe IVPUSH ONE (05:52)
[2016-07-19] MEDS ORDERED: Propofol 10,000 mCg/mL 20 mL Inj ONE (05:52)
[2016-07-19 06:57] LABS: INR 1.43 ratio
[2016-07-19] MEDS: Insulin LISPRO 300 Unit/3 mL Inj SUBQ SCH ×4 (07:31→21:23)
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
[2016-07-19] MEDS ORDERED: Lactated Ringer's 1,000 ML IV ONE ×3 (08:45→09:16)
--- NOTE | 2016-07-19 10:19 | NUR ---
Transfer To OR via bed at 09:40. Report given to REYNALDO Merino RN.
[2016-07-19] MEDS ORDERED: Ropivacaine-PF 0.5% 30 mL Inj INFILTRATE ONE (11:00)
[2016-07-19] MEDS ORDERED: Lactated Ringer's 500 ML IV PRN (11:03)
[2016-07-19] MEDS ORDERED: Lactated Ringer's 1,000 ML IV SCH (11:03)
[2016-07-19] MEDS ORDERED: Ondansetron 2 mg/mL 2 mL Inj IVPUSH PRN ×2 (11:05→12:45)
[2016-07-19] MEDS ORDERED: Dexamethasone 4 mg/mL Inj IVPUSH PRN (11:05)
[2016-07-19] MEDS ORDERED: Labetalol 5 mg/mL 4 mL Inj IV PRN (11:05)
[2016-07-19] MEDS ORDERED: Phenylephrine 10,000 mCg/mL Inj IVPUSH PRN (11:05)
[2016-07-19] MEDS ORDERED: Atropine 0.4 mg/mL Inj IVPUSH PRN (11:05)
[2016-07-19] MEDS ORDERED: HYDROmorphone 1 mg/mL Inj IVPUSH PRN (11:05)
[2016-07-19] MEDS ORDERED: hydrALAZINE 20 mg/mL Inj IVPUSH PRN (11:05)
[2016-07-19] MEDS ORDERED: fentaNYL-PF 50 mCg/mL 2 mL Inj IVPUSH PRN (11:05)
[2016-07-19] MEDS ORDERED: EPHEDrine Sulfate 50 mg/mL Inj IVPUSH PRN (11:05)
[2016-07-19] MEDS ORDERED: diphenhydrAMINE 25 mg Capsule PO PRN (12:45)
[2016-07-19] MEDS ORDERED: Polyethylene Glycol (PEG) 17 Gm Powder PO PRN (12:45)
[2016-07-19] MEDS ORDERED: Magnesium Hydroxide 10 mL Oral Concentration PO PRN (12:45)
[2016-07-19] MEDS ORDERED: Acetaminophen IV 1,000 MG in IV Premix 1 EACH IV PRN (12:45)
[2016-07-19] MEDS: Ketorolac 15 mg/mL Inj IVPUSH PRN (13:25)
--- NOTE | 2016-07-19 13:30 | PCM.ANEP1 ---
Post Anesthesia Phase 1 PACU Phase 1 Assessment Vital Signs Vital Signs Date Time Temp Pulse Resp B/P Pulse Ox O2 Delivery O2 Flow Rate FiO2 07/19/16 13:23 55 20 112/50 96 Nasal Cannula 4 07/19/16 13:05 56 17 113/68 92 Nasal Cannula 2 07/19/16 12:55 63 13 114/51 96 Simple Mask 9 07/19/16 12:45 53 17 116/51 97 Simple Mask 9 07/19/16 12:40 54 18 114/46 96 Simple Mask 9 07/19/16 12:35 61 17 100/67 96 Simple Mask 9 07/19/16 12:31 36.5 115/63 Simple Mask 9 07/19/16 08:32 66 20 123/78 98 Nasal Cannula 2.00 07/19/16 08:00 70 07/19/16 07:55 70 07/19/16 07:15 Supplement Oxygen 07/19/16 06:23 16 90 Anesthetic Administered: GA Level of Alertness: Awake, talking JUSTICE's with Equal Strength: Yes Pain: Yes Nausea or Vomiting: No Oxygen Delivery: Simple Mask Lungs: Normal Air Movement Dionicio Quezada MD Jul 19, 2016 13:30
[2016-07-19] MEDS: 0.9% Sodium Chloride 1,000 ML IV SCH ×2 (13:54→23:32)
--- NOTE | 2016-07-19 14:05 | NUR ---
Post op Transfer back to [facility] [place] [place] 1023 via bed at 13:45. Report received from Kristin. Ambriz. Pt is drowsy, wakes to loud voice and touch. Sats mid 90s on 4Lnc. R hip dressing CDI. Grove draining to gravity. No complaints of pain or nausea.
--- NOTE | 2016-07-19 14:17 | NUR ---
spiritual care: pt request rec through nursing visit attempt X2, pt sleeping
--- NOTE | 2016-07-19 16:52 | NUR ---
Resp/sedation Pt is somnolent. Wakes to voice and is oriented. 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 RR 16-18. No narcotics given since arrival to [facility]. RT paged for capnography and assessed pt. EtCO2 ranging from 20s-50s. Per RT, will page if EtCO2 exceeds 60 or change in LOC.
[2016-07-19] MEDS: CeFAZolin Inj 2 GM in IV Premix 1 EACH IV SCH ×2 (17:37→23:32)
[2016-07-19] MEDS: Sodium Chloride LOK Flush 10 mL Syringe IV SCH ×2 (17:38→23:35)
--- NOTE | 2016-07-19 17:49 | PCM.ANEP2 ---
Post Anesthesia Evaluation ASA/CMS Post Anesthesia VS in Patient's Normal Range?: Yes Resp Stable; Airway Patent?: Yes CV Function & Hydration Stable: Yes Mental Status Recovered?: Yes Pain control Satisfactory?: Yes N/V Control Satisfactory?: Yes Dionicio Quezada MD Jul 19, 2016 17:49
--- NOTE | 2016-07-19 18:42 | PCM.CONPHA ---
Assessment/Plan Assessment/Plan ANTICOAGULATION MANAGEMENT BY PHARMACY -INDICATION: AFIB -HOME DOSE: 6 MG DAILY -CONCURRENT ANTICOAGULATION: ENOXAPARIN 40 MG DAILY -CRCL: 56.1 ML/MIN -COAG TRENDS: Date INR 1.43 -[id number] SCORE: 6 PLAN: Per md will hold tonights dose and will restart patient on her home dose starting tomorrow of 6 mg and continue to dose based on subsequent INRs Pharmacy appreciates consult and will continue to monitor. THANKS! Jesica Almazan PharmD Jul 19, 2016 18:42
--- NOTE | 2016-07-19 20:06 | NUR ---
[facility] signed
[2016-07-19] MEDS: Senna-Docusate 8.6-50 mg Tablet PO SCH ×2 (20:14→20:15)
--- NOTE | 2016-07-19 20:20 | PCM.PNMED ---
Subjective Date of Service Jul 19, 2016 Subjective Patient is seen and examined following her surgery. Earlier today Dr. Santo her surgery was contacted regarding her lumbar scan and he verified that he has indeed followed MRI and he did not see a need to postpone the surgery based on those findings. He felt that she might benefit from steroids. Patient did not get her echo ultrasound prior to surgery. She apparently had a recent diagnosis of colon cancer. She indeed has a lot of pain in her spine due to severe stenosis in several parts of her lumbar spine. She required Dilaudid pump last night. Currently her home methadone is held and only the Dilaudid pump and oxycodone and left on board. Ambien is discontinued She currently appears very drowsy and she is redirectable and answering questions when asked. She denies pain, dyspnea. Exam Vital Signs Vital Sign - Last Date Time Temp Pulse Resp B/P Pulse Ox O2 Delivery O2 Flow Rate FiO2 07/19/16 05:28 16 90 07/19/16 04:59 36.5 91 133/71 Room Air Intake and Output 07/18/16 07/18/16 07/19/16 Cumulative From/Thru 15:00 23:00 07:00 07/18/16 09:29 - 07/19/16 01:04 Intake Total 540 ml 280 ml 820 ml Output Total 1050 ml 1050 ml Balance -510 ml 280 ml -230 ml Intake Oral 240 ml 240 ml IV Total 50 ml 50 ml 100 ml FFP 250 ml 230 ml 480 ml Output Urine Total 1050 ml 1050 ml # Bowel Movements 0 0 Exam Gen.: Drowsy, sleeping with eyes closed H EENT: Normocephalic, atraumatic Lungs: Clear to auscultation anteriorly Abdomen: Obese, soft, nontender nondistended, normal bowel sounds Extremities: 2+ dorsalis pedis pulse palpable Skin: Warm to touch, no visible rash present IVs and Medications IV Fluids Normal saline running at 100 mL per hour. Plan to discontinue as soon as she is able to take the O and she does have history of congestive heart failure Medications Reviewed: Medications were reviewed in detail Lab and Diagnostics Result Diagram: 07/19/1644407/19/16444 X-Rays, CTs and MRIs [facility] Diagnostic [place] [address] Patient Name: ANNABEL HUGHES MR#: [id number] Location: [facility] Ordering Phys: Bryant Cummings MD Date of Service: 07/18/16 1047 PROCEDURE: MRI LUMBAR SPINE WITHOUT CONTRAST ([id number]) INDICATIONS: New L Sciatica, anticoagulated TECHNIQUE: Noncontrast sagittal T1 spin echo and T2 fast echo, sagittal STIR, axial T1 and T2 fast spin echo through the lumbar spine. In cases with scoliosis, additional coronal T2 fast spin echo may be performed. COMPARISON: None. FINDINGS: Image quality: Excellent. Alignment and Curvature: There is trace L3 on L4 and L4-L5 retrolisthesis. There is convex right curvature of the lumbar spine; recommend correlation with weight-bearing plain film radiographs to exclude scoliosis. Bone Marrow: Changes noted adjacent to the L2-L3, L3-L4, L4-L5 and L5-S1 discs.. No acute vertebral body compression fractures. Spinal Cord: Conus medullaris terminates at the L1 level. Visualized cord demonstrates normal signal and size. Paraspinous Soft Tissues: No paravertebral masses. L1-L2: Loss of disc signal. Mild bilateral facet hypertrophy. Moderate ligamentum flavum hypertrophy. Mild narrowing of the central canal secondary to disc disease mild bilateral neural foraminal narrowing secondary to disc and facet disease. No neural impingement. L2-L3: Loss of disc signal. Minimal, diffuse disc bulge. Moderate facet and moderate ligamentum flavum hypertrophy. Mild to moderate narrowing of the central canal secondary to disc disease and posterior element hypertrophy. Mild bilateral neuroforaminal narrowing secondary to disc and facet disease. No neural impingement. Focal high density zone in the anterior annulus compatible with a fissure. L3-L4: Loss of disc signal and height. Moderate, diffuse disc bulge. Moderate facet and moderate ligamentum flavum hypertrophy. Moderate to severe narrowing of the central canal secondary to disc disease and posterior element hypertrophy. Moderate bilateral neuroforaminal narrowing secondary to disc and facet disease. Fluid signal noted in the intervertebral disc space which can represent reactive change versus earliest manifestation of discitis; please correlate clinical and laboratory data. L4-L5: Loss of disc signal. Mild, diffuse disc bulge. Large central disc protrusion superimposed on diffuse disc bulge. Moderate facet and moderate ligamentum flavum hypertrophy. Severe central stenosis secondary to disc disease and posterior element hypertrophy. Severe right and [id number] left neural foraminal narrowing secondary to disc and facet disease. Focal high density zone in the anterior annulus compatible with a fissure. L5-S1: Loss of disc signal. Mild, diffuse disc bulge with small central disc protrusion superimposed on diffuse disc bulge. Severe facet and moderate ligamentum flavum hypertrophy. Moderate narrowing of the central canal secondary to disc disease and posterior element hypertrophy. Severe right and mild left neural foraminal narrowing secondary to disc and facet disease. IMPRESSION: 1. Convex right curvature recommend weight-bearing plain film radiographs of the lumbar spine when clinically feasible to exclude scoliosis. 2. Grade I L3-L4 and L4-5 degenerative spondylolisthesis. 3. Multilevel degenerative disc disease. 4. Multilevel facet arthropathy. 5. Severe L4-L5 central canal stenosis. Moderate to severe L3-L4 central canal narrowing. Moderate L5-S1 central are present mild L1-L2 and L2-L3 central canal narrowing. 6. Severe right and moderate severe left L4-L5 neural foramen. Severe right and mild left L5-S1 neural foraminal narrowing. Moderate bilateral L2-L4 neural foraminal narrowing. Mild bilateral L1-L2 and L2-L3 neuroforaminal narrowing. 7. L2-L3 and L4-L5 disc annulus fissures. 8. Fluid signal in the L3-L4 disc space likely representing a reactive change, however finding is nonspecific and correlation with clinical laboratory data is recommended to exclude a very early manifestation of discitis. Dictated by: Daniela Diane MD, PhD on 07/18/2016 at 15:04 Approved by: Daniela Diane MD, PhD on 07/18/2016 at 15:12 [facility] Diagnostic [place] [address] Patient Name: ANNABEL HUGHES MR#: [id number] Location: [facility] Ordering Phys: Bryant Cummings MD Date of Service: 07/18/16 1013 PROCEDURE: X-RAY CHEST ONE VIEW ([id number]) INDICATIONS: HIP FRACTURE TECHNIQUE: One view of the chest was acquired. COMPARISON: [facility], CR, XR CHEST 1V PORTABLE, 03/25/2016, 1: 24 AM. [facility], CT, CT BIOPSY LUNG, 06/10/2016, 1:47 PM. [facility], CR, XR CHEST 1V PORTABLE, 06/11/2016, 7:41 AM. FINDINGS: Surgical changes and devices: Surgical clips at the gastroesophageal junction. Lungs and pleura: No pleural effusions or pneumothorax. Lungs are clear. Elevation of the right hemidiaphragm is stable compared to prior examination. Mediastinum: Mediastinal contours appear normal. Heart size is normal. Bones and chest wall: No suspicious bony lesions. Overlying soft tissues appear unremarkable. IMPRESSION: No acute cardiopulmonary disease process. Dictated by: Daniela Diane MD, PhD on 07/18/2016 at 10:43 Approved by: Daniela Diane MD, PhD on 07/18/2016 at 10:44 [facility] Diagnostic [place] [address] Patient Name: ANNABEL HUGHES MR#: [id number] Location: [facility] Ordering Phys: IAIN, URIAH MENDEZ Date of Service: 07/18/16 0953 PROCEDURE: X-RAY PELVIS W/LAT HIP (RT) ([id number]) INDICATIONS: fall; rt hip pain TECHNIQUE: AP pelvis with lateral view(s) of the right hip(s). COMPARISON: None. FINDINGS: Bones: Displaced right subtrochanteric hip fracture noted. Bilateral hip osteoarthritic degenerative changes are noted. Pelvic ring appears intact. No suspicious bony lesions. Soft tissues: The visualized bowel gas pattern is normal. No suspicious soft tissue calcifications. Bilateral groin surgical clips noted. IMPRESSION: Right subtrochanteric femur fracture. Dictated by: Daniela Diane MD, PhD on 07/18/2016 at 10:42 Approved by: Daniela Diane MD, PhD on 07/18/2016 at 10:43 12-lead ECG Rate controlled A. fib Cardiac Echo Impressions Cardiac echo is pending Assessment & Plan Assessment #1 right femur subtrochanteric fracture as evidenced by the x-ray: -- Consult orthopedics. They may take patient to work tomorrow a.m. -- Pain control with Dilaudid pump initial settings were increased due to patient's findings on the scans as well as due to her high tolerance for pain medications -- INR is 2.5 in the ER vitamin K by mouth 10 mg is given, follow-up INR is only 2.4 slightly better. She is given 2 units of FFP -Echocardiogram is ordered due to prior cardiac history results is also pending -- Nothing by mouth diet after midnight -- She was given 2 units of FFP night before this a.m. her INR was 1.46. Her surgeon was notified. She underwent left hip replacement arthroplasty Chronic conditions: Severe central canal stenosis as evidenced by the lumbar MRI: -- Discussed this findings with orthopedics in the a.m. a.m. Chronic pain syndrome: -- Most likely due to the above findings as evidenced by the lumbar MRI. -- Patient is not very clear on how frequently she takes her home morphine most of which is i--IR formulation. She states that she did not fill them recently because she does not take them all the time. -- Dilaudid pump as above plus oxycodone for surgery Anxiety: Continue Xanax home with home medication Chronic atrial fibrillation: Restart Coumadin tomorrow a.m. Pharmacy consult Chronic hypertension -- Continue home medications. Tomorrow a.m. hold medications except metoprolol CAD: -- Continue home medications. Hold all medications except metoprolol -- Echo is pending as above COPD: -- Plan to continue home medications DM 2: -- She declined diabetic diet disease on general diet -- Sliding scale low coverage Plan to continue most of her home medications with the exception of aspirin and warfarin. The surgery Pain Evaluation: Adequate Pain Control VTE Mechanical Devices: Intermittant Pneumatic CD, Anti-Embolic stockings Resuscitation Status: CPR: Attempt Resuscitation Megan Crespo DO Jul 19, 2016 05:35
--- NOTE | 2016-07-19 23:49 | OP ---
[address] [address] OPERATIVE REPORT PATIENT: ANNABEL HUGHES : 1940 MR#: [id number] ADMIT: 07/18/2016 JOB ID: [id number] DATE OF SURGERY: 07/19/2016 PREOPERATIVE DIAGNOSIS(ES): Right subtrochanteric femur fracture. POSTOPERATIVE DIAGNOSIS(ES): Right subtrochanteric femur fracture. PROCEDURE: Right subtrochanteric femur fracture intramedullary nailing. SURGEON: Sourav Calvin DO. ANESTHESIA: General. INDICATIONS: The patient is a 76-year-old female who fell yesterday at home when her left hip gave way likely secondary to severe arthritis, causing her to fall and fracture her right subtrochanteric femur. She was unable to ambulate after the injury. We discussed treatment options and she wished to proceed with a right hip intramedullary nailing. We discussed the risks, benefits, and possible complications of surgery. All questions were answered and she wished to proceed. PROCEDURE IN DETAIL: The patient was brought to the operating room. She was given a preoperative antibiotic and general anesthetic. A preoperative time-out was performed. She was placed onto the fracture table and the right hip was reduced to the extent that it could be with a combination of traction and internal rotation. The right hip was sterilely prepped and draped. An incision was made centered in line with the femur just proximal to the trochanter and dissection was carefully carried through the subcutaneous tissue and down through the iliotibial band. The patient is quite obese and it was somewhat difficult to gain the starting point for the guidewire, but I was able to place this and checked confirmation of guide pin placement in the AP and lateral projections. I then over reamed the proximal femur and then placed a reduction finger into the proximal fragment in order to allow the ball-tipped guidewire to go down distally into the shaft. The ball-tipped guidewire was then able to be placed down into the shaft of the femur. This was then over-reamed with a proximal reamer and this was sized, felt to be a 380 mm length. The femur was then reamed sequentially up to a 13 and a Biomet Affixus 11 x 380 mm length nail was chosen with a 125 degree angle. This was implanted and the lag screw was then placed. An incision was made over the lateral femur and the guide was placed onto the bone. A guide pin was introduced into the center of the femoral head. I erred on slightly low side in order to maximize fixation. Advanced a 105 mm lag screw which had good purchase and then tightened with the set screw. I did have some difficulty with the set screw, which seemed to cross thread, but after backing it up all the way and then advancing it, it seemed to work and I tightened it down and backed it off slightly to allow for compression as needed. Next, the proximal guide was removed. Confirmation of implant position was made with biplane fluoroscopy and we moved to the distal locks. Perfect [place] technique was used to visualize the distal locking holes and then incisions were made over each of them. Dissection was carried down onto the femur and two distal locks were placed having excellent purchase. The wounds were then irrigated and closed with 0 Vicryl to close the iliotibial band and 2-0 to close the subcu. The skin was closed with vincenzo. Naropin was added as an adjunct local anesthetic. Sterile dressings were applied. Patient tolerated the procedure well. BLOOD LOSS: 300 cc. POSTOPERATIVE PROTOCOL: Have the patient remain toe-touch weightbearing on the right lower extremity for likely a period of six weeks. She may resume her Coumadin for DVT prophylaxis. MERLY
[2016-07-20] VITALS (11 sets, daily range): BP systolic 94–121; BP diastolic 53–77; PULSE 59–89; RESP 16–20; O2SAT 90–99
--- NOTE | 2016-07-20 02:46 | NUR ---
Pain Pt.c/o 8-02/04 pain yet cont. to be sedated.Med. with 5mg oxycodone x2 thus far and and helpful yet luis. pos. changes poorly.VSS.Luis. some po fluids w/o c/o nausea.UOP qs via ch.Sats in the low to mid 90s on 2L.Capnogrophy 30-40.A&O and answers questions appropriately.Sleeping soundly at this time and appears to be resting comfortably.Will cont. to monitor.
[2016-07-20 05:41] LABS: BASOPHILS % (AUTO) 0.2 % (0-3); EOSINOPHILS % (AUTO) 2.1 % (0-5); Mean Corpuscular Hemoglobin 27.6 pg (27.0-35.0); Mean Corpuscular Volume 88.3 fL (81-100); NEUTROPHILS % (AUTO) 67.3 % (40-74); Platelet Count 169 bil/L (150-400)
[2016-07-20 05:58] LABS: INR 1.1 ratio
[2016-07-20] MEDS: Insulin LISPRO 300 Unit/3 mL Inj SUBQ SCH ×4 (08:00→22:00)
[2016-07-20] MEDS: Sodium Chloride LOK Flush 10 mL Syringe IV SCH ×3 (08:03→22:00)
[2016-07-20] MEDS: Senna-Docusate 8.6-50 mg Tablet PO SCH ×2 (08:05→20:50)
[2016-07-20] MEDS: Ketorolac 15 mg/mL Inj IVPUSH PRN ×2 (08:11→17:08)
[2016-07-20] MEDS ORDERED: WARFARIN SODIUM 6 MG PO SCH (08:30)
[2016-07-20] MEDS: 0.9% Sodium Chloride 1,000 ML IV SCH ×3 (10:39→22:07)
--- NOTE | 2016-07-20 12:52 | PCM.PNORTH ---
Subjective Date of Service: Jul 20, 2016 Visit Information: Reason for Visit Rt Hip Fx Surgery/Surgery Date right hip IM nail 07/19/2016 Post-Op Day # 1 Date of Admission: Jul 18, 2016 at 11:28 Hospital Day # Subjective Patient complains of severe pain. She appears to be lying in bed comfortably. She states that she was on morphine sulfate 45 mg 3 times a day, and [place] 10 mg 2 every 4 hours prior to her fall. She states she is not getting enough pain medicine here. She has not yet been out of bed. Physical therapy saw her yesterday but she was too sedated for activity. This morning she refused physical therapy due to pain. She complains throughout the entire right leg. She was on CURRICULUM COACH of Dilaudid and it was discontinued after the patient became too sedated and needed to be on O2 monitoring Postop General: No Shortness of Breath, No Chest Pain Pain Management: PO Objective Exam Objective Patient is seen lying in bed Vital Signs and I/O Vital Sign - Last Date Time Temp Pulse Resp B/P Pulse Ox O2 Delivery O2 Flow Rate FiO2 07/20/16 10:23 36.8 59 18 121/77 99 Nasal Cannula 2.00 Intake and Output 07/19/16 07/19/16 07/20/16 Cumulative From/Thru 15:00 23:00 07:00 07/18/16 09:29 - 07/20/16 05:59 Intake Total 1000 ml 0 ml 2113 ml 4487 ml Output Total 800 ml 250 ml 400 ml 2500 ml Balance 200 ml -250 ml 1713 ml 1987 ml Intake Oral 0 ml 600 ml 840 ml IV Total 1000 ml 1513 ml 3167 ml FFP 480 ml Output Urine Total 500 ml 250 ml 400 ml 2200 ml Estimated Blood Loss 300 ml 300 ml # Bowel Movements 0 0 Lab & Micro Results Laboratory Tests Test 07/20/16 05:05 White Blood Count 6.6th/mm3 (3.8-10.1) Red Blood Count 3.59mil/mm3 (3.90-5.20) Hemoglobin 9.9g/dL (12.0-15.6) Hematocrit 31.7% (35.0-46.0) Mean Corpuscular Volume 88.3fL (81-100) Mean Corpuscular Hemoglobin 27.6pg (27.0-35.0) Mean Corpuscular Hemoglobin Concent 31.2% (32.0-37.0) Red Cell Distribution Width 15.4% (12.3-15.4) Platelet Count 169bil/L (150-400) Neutrophils (%) (Auto) 67.3% (40-74) Lymphocytes (%) (Auto) 18.2% (14-46) Monocytes (%) (Auto) 12.0% (4-12) Eosinophils (%) (Auto) 2.1% (0-5) Basophils (%) (Auto) 0.2% (0-3) Prothrombin Time 11.8sec (8.1-12.5) Prothromb Time International Ratio 1.10ratio Sodium Level 140mEq/L (134-144) Potassium Level 4.4mEq/L (3.5-5.2) Chloride Level 104mEq/L (97-108) Carbon Dioxide Level 25mmol/L (18-29) Blood Urea Nitrogen 33mg/dL (8-27) Creatinine 0.95mg/dL (0.57-1.00) Estimat Glomerular Filtration Rate 82mL/min (>59) Glucose Level 124mg/dL (60-99) Calcium Level 8.7mg/dL (8.5-10.1) Total Bilirubin 0.8mg/dL (0.0-1.2) Aspartate Amino Transf (AST/SGOT) 28U/L (0-50) Alanine Aminotransferase (ALT/SGPT) 16U/L (0-32) Alkaline Phosphatase 153U/L (25-165) Total Protein 5.4g/dL (6.4-8.4) Albumin 2.6g/dL (3.4-5.0) Result Diagram: 07/20/16 0505 07/20/16 0505 General Appearance: Alert, Oriented X3, Cooperative, No Acute Distress Extremities: Distal Pulses Palpable, No Compartment Syndrom Noted, Tenderness/ Swelling Noted (left hip and thigh, as expected) Postop Sensory Motor: Movement in Toes, Distal Sensation Intact Activity: Activity per PT, Ambulate with PT Assessment & Plan Impression POD #1 right hip IM nail for intertrochanteric fracture Problems: Plan Weightbearing: Right lower extremity Toe-touch weightbearing with walker x 6 weeks DVT prophylaxis: Resume warfarin, pharmacy dosing. Lovenox to bridge until warfarin is therapeutic Physical therapy for transfers, progressive ambulation, therapeutic exercise Wound care: PA will change dressing on postop day 2 Follow-up plan: In 2 weeks at [facility] with PA for wound check and at [address] Calvin with x-rays Pain Management: Oxycodone, Toradol VTE Prophylaxis: Sub-Q Enoxaparin, Theraputic Anticoag with Warfarin Resuscitation Status: CPR: Attempt Resuscitation BroadusKellie Oro PA-C Jul 20, 2016 12:52
--- NOTE | 2016-07-20 18:18 | DRSVH ---
[facility] [address] [place] [address] Echocardiogram Report Name: ANNABEL HUGHES KStudy Date: 07/20/2016 Height: 67 in Hospital Exam Location: [facility] Weight: 249 lb Gender: Female BSA: 2.2 m2 : 1940 Age: 76 yrs BP: 114/69 mmHg Reason For Study: Arrhythmia Ordering Physician: HOSPITALIST [facility] Performed By: Rosaura Jacob Referring Physician: ELISA Ball Interpretation Summary Afib with controlled rate. Normal LV size and wall thickness; normal wall motion and LV systolic function. EF is 60-65%. Severe LA enlargement; otherwise normal chamber sizes. There is a possible TINY PFO present with a very small amount of left to right shunting. Mitral valve leaflets are moderately thickened; there is moderate MAC without associated MR. Aortic valve leaflets are moderately calcified and thickened (especially the non-coronary leaflet). There is no regurgitation or stenosis. No prior echo is available for comparison. Procedure: A two-dimensional transthoracic echocardiogram with color flow and Doppler was performed. The study quality was technically adequate. There is no prior echocardiogram noted for this patient. The heart rate ranged between 66-77 bpm during the study. Left Ventricle: The left ventricle is normal in size, wall thickness, and systolic function without any focal wall motion abnormalities. The ejection fraction is estimated to be 60-65%. Diastolic function could not be accurately assessed due to unobtainable data. Right Ventricle: The right ventricle is normal in size, thickness and function. Atria: The left atrium is moderately dilated. Right atrial size is normal. Probable PFO identified, with left to right shunt. Mitral Valve: The mitral valve leaflets appear moderately thickened, but open well. The mitral valve leaflets are mildly calcified. There is moderate mitral annular calcification. There is no mitral regurgitation noted. Aortic Valve: The aortic valve is trileaflet. The aortic valve opens well. The aortic valve is moderately calcified. There is trace aortic regurgitation. Tricuspid Valve: The tricuspid valve is normal in structure and function. There is trace tricuspid regurgitation. The right ventricular systolic pressure is estimated at 45 mmHg assuming a right atrial pressure of 8 mm Hg. Pulmonic Valve: The pulmonic valve is not well seen, but is grossly normal. There is mild pulmonic regurgitation. Great Vessels: The aortic root is normal size. The dimensions of the ascending aorta are normal. The IVC is dilated (diameter is greater than 2.1 cm) and it collapses less than 50% with a sniff. This suggests a high right atrial pressure of 15 mm Hg. The IVC is dilated (diameter is greater than 2.1 cm) yet it collapses greater than 50% with a sniff. This suggests a right atrial pressure of 8 mm Hg. Pericardium/ Pleura There is no pericardial effusion. There is no pleural effusion. MMode/2D Measurements & Calculations LVIDd: 5.1 cm LA dimension: 5.0 cm RA long axis Ao root diam LVIDs: 3.1 cm FS: 40.1 % LA A2 area: 24.4 cm RA area Aortic Jxn: 2.4 cm IVSd: 0.86 cm LA A4 area: 28.2 cm asc Aorta Diam LVPWd: 0.94 cm LA length (vol) : 18.1 cm RA vol Ao Arch Diam (Prox LA vol: 98.7 ml : 55.8 ml Trans): 3.0 cm LA vol index RA : 25.1 mm/ RVDd major IVC diam: 2.3 cm : 4.3 cm LV encarnacion. diameter/BSA LV sys. diameter/BSA RVD1 (basal) RVD2 (mid): 3.7 cm (cm/m^2): 2.3 (cm/m^2): 1.4 Doppler Measurements & Calculations Ao V2 max MV P1/2t: 67.9 msec Med Peak E' Matthew TR max matthew : 144.0 cm/sec : 305.8 cm/sec Ao max PG Lat Peak E' Matthew TR max PG : 8.3 mmHg : 13.2 cm/sec : 37.4 mmHg Ao mean PG PA V2 max : 4.7 mmHg : 116.9 cm/sec PA mean PG PA Accel Time : 0.08 sec MV V2 mean MV P1/2t max matthew Ao V2 mean PA V2 mean : 73.2 cm/sec : 101.0 cm/sec : 61.7 cm/sec MV mean PG MVA(P1/2t): 3.2 cm2 Ao V2 VTI: 30.4 cm MV V2 VTI : 21.8 cm Reading Physician:06:17 PM
--- NOTE | 2016-07-20 19:21 | NUR ---
PAIN MGMT/LOC Patient was drowsy during early part of shift. Would open eyes and answer questions but then fall back asleep quickly. CPOX in place, patient requiring O2 @ 1.5LPM due to O2 desaturations. C/o 10/10 at start of shift. Administered oxy 5mg and toradol IV. That helped bring pain down to 6/10, which per patient is a tolerable level. Administered 10mg of oxy after 4 hrs and it seemed to help control/maintain pain if patient wasn't moving. With any movement to RLE patient complains of pain. Was able to dangle feet at edge of bed with 2 person max assist. Care Continues.
[2016-07-20] MEDS: HYDROmorphone PCA 0.2 mg/mL 30 mL Inj IV PRN (19:42)
--- NOTE | 2016-07-20 20:24 | PCM.PNMED ---
Subjective Date of Service Jul 20, 2016 Subjective Patient is seen and examined. She apparently was not coming up with capnography following surgery last night and pain medications were carefully controlled by the nursing. We talked to her regarding her risk of respiratory depression in that setting and patient revealed to me that she moved here recently from [place]. She had a doctor who prescribed her pain medicine and is coming to [place] she has not been able to find a new doctor to get her pain meds and she has been taking them very carefully so she would not run out. She states that she will be fine as long as she gets her pain medication and she will not going to respiratory depression. Nursing also stated that she did much better during the day more alert and awake in the 10 mg Scurry every 4 when necessary. Patient however is very concerned about her pain control and is requesting improvement medication dosage. States her pain is 10 or 10. She was able to get up and sit up on the side of the bed for nursing does not appear that she would much with PT OT today She also declined enoxaparin this a.m. it does not appear that she understood why she needed this. After prolonged discussion on postop course and her atrial fibrillation and her risk factors for stroke patient agreed to do only once a day enoxaparin. Exam Vital Signs Vital Sign - Last Date Time Temp Pulse Resp B/P Pulse Ox O2 Delivery O2 Flow Rate FiO2 07/20/16 04:10 36.9 79 18 114/69 96 Nasal Cannula 2.00 Intake and Output 07/19/16 07/19/16 07/20/16 Cumulative From/Thru 15:00 23:00 07:00 07/18/16 09:29 - 07/20/16 04:55 Intake Total 1000 ml 0 ml 1513 ml 3887 ml Output Total 800 ml 250 ml 2100 ml Balance 200 ml -250 ml 1513 ml 1787 ml Intake Oral 0 ml 240 ml IV Total 1000 ml 1513 ml 3167 ml FFP 480 ml Output Urine Total 500 ml 250 ml 1800 ml Estimated Blood Loss 300 ml 300 ml # Bowel Movements 0 Exam Gen.: No acute distress. Healthy-appearing, obese HEENT: Normocephalic, atraumatic Heart: Regular rate and rhythm no S3-S4 sounds Lungs: Clear to auscultation anteriorly Abdomen soft nontender Extremities: Trace swelling is present Neuro: No focal deficits, denies altered sensation in feet Psych: Negative for anxiety IVs and Medications IV Fluids Normal saline 80 mL/h Medications Reviewed: Medications were reviewed in detail Lab and Diagnostics Laboratory Tests Test 07/20/16 05:05 White Blood Count 6.6th/mm3 (3.8-10.1) Red Blood Count 3.59mil/mm3 (3.90-5.20) Hemoglobin 9.9g/dL (12.0-15.6) Hematocrit 31.7% (35.0-46.0) Mean Corpuscular Volume 88.3fL (81-100) Mean Corpuscular Hemoglobin 27.6pg (27.0-35.0) Mean Corpuscular Hemoglobin Concent 31.2% (32.0-37.0) Red Cell Distribution Width 15.4% (12.3-15.4) Platelet Count 169bil/L (150-400) Neutrophils (%) (Auto) 67.3% (40-74) Lymphocytes (%) (Auto) 18.2% (14-46) Monocytes (%) (Auto) 12.0% (4-12) Eosinophils (%) (Auto) 2.1% (0-5) Basophils (%) (Auto) 0.2% (0-3) Prothrombin Time 11.8sec (8.1-12.5) Prothromb Time International Ratio 1.10ratio Sodium Level 140mEq/L (134-144) Potassium Level 4.4mEq/L (3.5-5.2) Chloride Level 104mEq/L (97-108) Carbon Dioxide Level 25mmol/L (18-29) Blood Urea Nitrogen 33mg/dL (8-27) Creatinine 0.95mg/dL (0.57-1.00) Estimat Glomerular Filtration Rate 82mL/min (>59) Glucose Level 124mg/dL (60-99) Calcium Level 8.7mg/dL (8.5-10.1) Total Bilirubin 0.8mg/dL (0.0-1.2) Aspartate Amino Transf (AST/SGOT) 28U/L (0-50) Alanine Aminotransferase (ALT/SGPT) 16U/L (0-32) Alkaline Phosphatase 153U/L (25-165) Total Protein 5.4g/dL (6.4-8.4) Albumin 2.6g/dL (3.4-5.0) Result Diagram: 07/19/1644407/19/16444 X-Rays, CTs and MRIs [facility] Diagnostic [place] [address] Patient Name: ANNABEL HUGHES MR#: [id number] Location: [facility] [place] Ordering Phys: Bryant Cummings MD Date of Service: 07/18/16 1047 PROCEDURE: MRI LUMBAR SPINE WITHOUT CONTRAST ([id number]) INDICATIONS: New L Sciatica, anticoagulated TECHNIQUE: Noncontrast sagittal T1 spin echo and T2 fast echo, sagittal STIR, axial T1 and T2 fast spin echo through the lumbar spine. In cases with scoliosis, additional coronal T2 fast spin echo may be performed. COMPARISON: None. FINDINGS: Image quality: Excellent. Alignment and Curvature: There is trace L3 on L4 and L4-L5 retrolisthesis. There is convex right curvature of the lumbar spine; recommend correlation with weight-bearing plain film radiographs to exclude scoliosis. Bone Marrow: Changes noted adjacent to the L2-L3, L3-L4, L4-L5 and L5-S1 discs.. No acute vertebral body compression fractures. Spinal Cord: Conus medullaris terminates at the L1 level. Visualized cord demonstrates normal signal and size. Paraspinous Soft Tissues: No paravertebral masses. L1-L2: Loss of disc signal. Mild bilateral facet hypertrophy. Moderate ligamentum flavum hypertrophy. Mild narrowing of the central canal secondary to disc disease mild bilateral neural foraminal narrowing secondary to disc and facet disease. No neural impingement. L2-L3: Loss of disc signal. Minimal, diffuse disc bulge. Moderate facet and moderate ligamentum flavum hypertrophy. Mild to moderate narrowing of the central canal secondary to disc disease and posterior element hypertrophy. Mild bilateral neuroforaminal narrowing secondary to disc and facet disease. No neural impingement. Focal high density zone in the anterior annulus compatible with a fissure. L3-L4: Loss of disc signal and height. Moderate, diffuse disc bulge. Moderate facet and moderate ligamentum flavum hypertrophy. Moderate to severe narrowing of the central canal secondary to disc disease and posterior element hypertrophy. Moderate bilateral neuroforaminal narrowing secondary to disc and facet disease. Fluid signal noted in the intervertebral disc space which can represent reactive change versus earliest manifestation of discitis; please correlate clinical and laboratory data. L4-L5: Loss of disc signal. Mild, diffuse disc bulge. Large central disc protrusion superimposed on diffuse disc bulge. Moderate facet and moderate ligamentum flavum hypertrophy. Severe central stenosis secondary to disc disease and posterior element hypertrophy. Severe right and [id number] left neural foraminal narrowing secondary to disc and facet disease. Focal high density zone in the anterior annulus compatible with a fissure. L5-S1: Loss of disc signal. Mild, diffuse disc bulge with small central disc protrusion superimposed on diffuse disc bulge. Severe facet and moderate ligamentum flavum hypertrophy. Moderate narrowing of the central canal secondary to disc disease and posterior element hypertrophy. Severe right and mild left neural foraminal narrowing secondary to disc and facet disease. IMPRESSION: 1. Convex right curvature recommend weight-bearing plain film radiographs of the lumbar spine when clinically feasible to exclude scoliosis. 2. Grade I L3-L4 and L4-5 degenerative spondylolisthesis. 3. Multilevel degenerative disc disease. 4. Multilevel facet arthropathy. 5. Severe L4-L5 central canal stenosis. Moderate to severe L3-L4 central canal narrowing. Moderate L5-S1 central are present mild L1-L2 and L2-L3 central canal narrowing. 6. Severe right and moderate severe left L4-L5 neural foramen. Severe right and mild left L5-S1 neural foraminal narrowing. Moderate bilateral L2-L4 neural foraminal narrowing. Mild bilateral L1-L2 and L2-L3 neuroforaminal narrowing. 7. L2-L3 and L4-L5 disc annulus fissures. 8. Fluid signal in the L3-L4 disc space likely representing a reactive change, however finding is nonspecific and correlation with clinical laboratory data is recommended to exclude a very early manifestation of discitis. Dictated by: Daniela Diane MD, PhD on 07/18/2016 at 15:04 Approved by: Daniela Diane MD, PhD on 07/18/2016 at 15:[address] [facility] Diagnostic [place] [address] Patient Name: ANNABEL HUGHES MR#: [id number] [place] [facility] [place] Phys: Bryant Cummings MD Date of Service: 07/18/16 1013 PROCEDURE: X-RAY CHEST ONE VIEW ([id number]) INDICATIONS: HIP FRACTURE TECHNIQUE: One view of the chest was acquired. COMPARISON: [facility], CR, XR CHEST 1V PORTABLE, 03/25/2016, 1: 24 AM. [facility], CT, CT BIOPSY LUNG, 06/10/2016, 1:47 PM. [facility], CR, XR CHEST 1V PORTABLE, 06/11/2016, 7:41 AM. FINDINGS: Surgical changes and devices: Surgical clips at the gastroesophageal junction. Lungs and pleura: No pleural effusions or pneumothorax. Lungs are clear. Elevation of the right hemidiaphragm is stable compared to prior examination. Mediastinum: Mediastinal contours appear normal. Heart size is normal. Bones and chest wall: No suspicious bony lesions. Overlying soft tissues appear unremarkable. IMPRESSION: No acute cardiopulmonary disease process. Dictated by: Daniela Diane MD, PhD on 07/18/2016 at 10:43 Approved by: Daniela Diane MD, PhD on 07/18/2016 at 10:[address] [facility] Diagnostic [place] [address] Patient Name: ANNABEL HUGHES MR#: [id number] Location: [facility] Ordering Phys: URIAH TIMMONS MD Date of Service: 07/18/16 0953 PROCEDURE: X-RAY PELVIS W/LAT HIP (RT) ([id number]) INDICATIONS: fall; rt hip pain TECHNIQUE: AP pelvis with lateral view(s) of the right hip(s). COMPARISON: None. FINDINGS: Bones: Displaced right subtrochanteric hip fracture noted. Bilateral hip osteoarthritic degenerative changes are noted. Pelvic ring appears intact. No suspicious bony lesions. Soft tissues: The visualized bowel gas pattern is normal. No suspicious soft tissue calcifications. Bilateral groin surgical clips noted. IMPRESSION: Right subtrochanteric femur fracture. Dictated by: Daniela Diane MD, PhD on 07/18/2016 at 10:42 Approved by: Daniela Diane MD, PhD on 07/18/2016 at 10:43 12-lead ECG Rate controlled A. fib Cardiac Echo Impressions Cardiac echo is pending [facility] Diagnostic [place] [address] Patient Name: ANNABEL HUGHES MR#: [id number] Location: [facility] Ordering Phys: Megan Crespo DO Date of Service: 07/20/16 1235 [facility] [address] [place] [address] Echocardiogram Report Name: ANNABEL HUGHES KStudy Date: 07/20/2016 Height: 67 in Hospital Exam Location: [facility] Weight: 249 lb Gender: Female BSA: 2.2 m2 : 1940 Age: 76 yrs BP: 114/69 mmHg Reason For Study: Arrhythmia Ordering Physician: HOSPITALIST [facility] Performed By: Rosaura Jacob Referring Physician: ELISA Ball Interpretation Summary Afib with controlled rate. Normal LV size and wall thickness; normal wall motion and LV systolic function. EF is 60-65%. Severe LA enlargement; otherwise normal chamber sizes. There is a possible TINY PFO present with a very small amount of left to right shunting. Mitral valve leaflets are moderately thickened; there is moderate MAC without associated MR. Aortic valve leaflets are moderately calcified and thickened (especially the non-coronary leaflet). There is no regurgitation or stenosis. No prior echo is available for comparison. Procedure: A two-dimensional transthoracic echocardiogram with color flow and Doppler was performed. The study quality was technically adequate. There is no prior echocardiogram noted for this patient. The heart rate ranged between 66-77 bpm during the study. Left Ventricle: The left ventricle is normal in size, wall thickness, and systolic function without any focal wall motion abnormalities. The ejection fraction is estimated to be 60-65%. Diastolic function could not be accurately assessed due to unobtainable data. Right Ventricle: The right ventricle is normal in size, thickness and function. Atria: The left atrium is moderately dilated. Right atrial size is normal. Probable PFO identified, with left to right shunt. Mitral Valve: The mitral valve leaflets appear moderately thickened, but open well. The mitral valve leaflets are mildly calcified. There is moderate mitral annular calcification. There is no mitral regurgitation noted. Aortic Valve: The aortic valve is trileaflet. The aortic valve opens well. The aortic valve is moderately calcified. There is trace aortic regurgitation. Tricuspid Valve: The tricuspid valve is normal in structure and function. There is trace tricuspid regurgitation. The right ventricular systolic pressure is estimated at 45 mmHg assuming a right atrial pressure of 8 mm Hg. Pulmonic Valve: The pulmonic valve is not well seen, but is grossly normal. There is mild pulmonic regurgitation. Great Vessels: The aortic root is normal size. The dimensions of the ascending aorta are normal. The IVC is dilated (diameter is greater than 2.1 cm) and it collapses less than 50% with a sniff. This suggests a high right atrial pressure of 15 mm Hg. The IVC is dilated (diameter is greater than 2.1 cm) yet it collapses greater than 50% with a sniff. This suggests a right atrial pressure of 8 mm Hg. Pericardium/ Pleura There is no pericardial effusion. There is no pleural effusion. MMode/2D Measurements & Calculations LVIDd: 5.1 cm LA dimension: 5.0 cm RA long axis Ao root diam LVIDs: 3.1 cm FS: 40.1 % LA A2 area: 24.4 cm RA area Aortic Jxn: 2.4 cm IVSd: 0.86 cm LA A4 area: 28.2 cm asc Aorta Diam LVPWd: 0.94 cm LA length (vol) : 18.1 cm RA vol Ao Arch Diam (Prox LA vol: 98.7 ml : 55.8 ml Trans): 3.0 cm LA vol index RA : 25.1 mm/ RVDd major IVC diam: 2.3 cm : 4.3 cm LV encarnacion. diameter/BSA LV sys. diameter/BSA RVD1 (basal) RVD2 (mid): 3.7 cm (cm/m^2): 2.3 (cm/m^2): 1.4 Doppler Measurements & Calculations Ao V2 max MV P1/2t: 67.9 msec Med Peak E' Matthew TR max matthew : 144.0 cm/sec : 305.8 cm/sec Ao max PG Lat Peak E' Matthew TR max PG : 8.3 mmHg : 13.2 cm/sec : 37.4 mmHg Ao mean PG PA V2 max : 4.7 mmHg : 116.9 cm/sec PA mean PG PA Accel Time : 0.08 sec MV V2 mean MV P1/2t max matthew Ao V2 mean PA V2 mean : 73.2 cm/sec : 101.0 cm/sec : 61.7 cm/sec MV mean PG MVA(P1/2t): 3.2 cm2 Ao V2 VTI: 30.4 cm MV V2 VTI : 21.8 cm Reading Physician:06:17 PM Assessment & Plan Assessment #1 right femur subtrochanteric fracture as evidenced by the x-ray: -- Consult orthopedics. They may take patient to work tomorrow a.m. -- Pain control with Dilaudid pump initial settings were increased due to patient's findings on the scans as well as due to her high tolerance for pain medications -- INR is 2.5 in the ER vitamin K by mouth 10 mg is given, follow-up INR is only 2.4 slightly better. She is given 2 units of FFP -Echocardiogram is ordered due to prior cardiac history results is also pending -- Nothing by mouth diet after midnight -- She was given 2 units of FFP night before this a.m. her INR was 1.46. Her surgeon was notified. She underwent left hip replacement arthroplasty Chronic conditions: Severe central canal stenosis as evidenced by the lumbar MRI: -- Discussed this findings with orthopedics in the a.m. a.m. -She is on chronic pain medications at home she has no prescriber at the present time - Chronic pain syndrome: -- Most likely due to the above findings as evidenced by the lumbar MRI. -- Patient is not very clear on how frequently she takes her home morphine most of which is i--IR formulation. She states that she did not fill them recently because she does not take them all the time. -- Dilaudid pump as above plus oxycodone for surgery -- She also has a diagnosis of colon cancer from less than a month ago Anxiety: Continue Xanax home with home medication Chronic atrial fibrillation: Coumadin is restarted, INR 1.1 Pharmacy consult The current recommendation for perioperative bridging is 48-72 hours for A. fib. We will let her take her enoxaparin 40 mg subcutaneous today, will consider heparin drip tomorrow as patient is not agreeable to receiving more than once enoxaparin dosing her subcutaneous and she is too large to dose at 1.5 times her weight. Orthopedic surgeries (Dr. Koroma) notified of bridging consideration and they are agreeable to this Chronic hypertension -- Continue home medications. Tomorrow a.m. hold medications except metoprolol CAD: -- Continue home medications. Hold all medications except metoprolol -- Echo is performed today showed a concern for foramin ovale -- Restart aspirin tomorrow a.m. COPD: -- Plan to continue home medications DM 2: -- She declined diabetic diet disease on general diet -- Sliding scale low coverage The surgery Pain Evaluation: Pain not Controlled VTE Mechanical Devices: Intermittant Pneumatic CD Resuscitation Status: CPR: Attempt Resuscitation Megan Crespo DO Jul 20, 2016 05:36
--- NOTE | 2016-07-20 22:59 | NUR ---
PAIN; alert and oriented. Dr. Crespo here at approx. 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 Pt has only used 0.1mg so far but seems happy to have it back. ; jing ordered to be d/mi- pt refused stating she wants to wait until tomorrow. Addendum: 07/20/16 at 2301 by DANISH ANDERSON RN BLOOD SUGAR; pt refused blood sugar check.
[2016-07-21] VITALS (11 sets, daily range): BP systolic 101–128; BP diastolic 59–72; PULSE 63–83; RESP 16–18; O2SAT 94–98
--- NOTE | 2016-07-21 04:37 | NUR ---
ACTIVITY; turned and repositioned q 2 hrs and importance explained to pt. Importance of taking ch out ie risks possible uti explained to pt. Addendum: 07/21/16 at 0447 by DANISH ANDERSON RN PAIN; used very little velvet steamer dilaudid. No request for po pain rx. 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
[2016-07-21 05:00] LABS: BASOPHILS % (AUTO) 0.3 % (0-3); EOSINOPHILS % (AUTO) 4.7 % (0-5); MONOCYTES % (AUTO) 11.1 % (4-12); Mean Corpuscular Hemoglobin 27.5 pg (27.0-35.0); Mean Corpuscular Volume 87.6 fL (81-100); NEUTROPHILS % (AUTO) 62.7 % (40-74); Platelet Count 176 bil/L (150-400)
[2016-07-21 05:15] LABS: INR 1.04 ratio
[2016-07-21] MEDS: 0.9% Sodium Chloride 1,000 ML IV SCH ×3 (05:17→21:32)
[2016-07-21] MEDS: Insulin LISPRO 300 Unit/3 mL Inj SUBQ SCH ×4 (08:00→21:38)
[2016-07-21] MEDS: Senna-Docusate 8.6-50 mg Tablet PO SCH ×2 (08:21→19:50)
[2016-07-21] MEDS: Sodium Chloride LOK Flush 10 mL Syringe IV SCH ×2 (08:22→16:30)
--- NOTE | 2016-07-21 10:14 | PCM.PNORTH ---
Subjective Date of Service: Jul 21, 2016 Visit Information: Reason for Visit Rt Hip Fx Surgery/Surgery Date Right hip IM nail 07/19/2016 Post-Op Day # 2 Date of Admission: Jul 18, 2016 at 11:28 Hospital Day # Subjective Patient asked continues to complain of 10-10 pain but appears calm and cooperative during examination today. She was restarted on CONTROLLER INSTRUCTOR Dilaudid last night with extremely minimal dose and has not used it. Patient has not been up with physical therapy yet. She did sit at bedside yesterday for a few minutes. Postop General: No Shortness of Breath, No Chest Pain Pain Management: PO, CONTROLLER INSTRUCTOR without Basal Objective Exam Objective Patient is seen lying in bed Vital Signs and I/O Vital Sign - Last Date Time Temp Pulse Resp B/P Pulse Ox O2 Delivery O2 Flow Rate FiO2 07/21/16 06:44 36.8 18 127/72 96 Room Air 07/21/16 05:19 63 07/20/16 15:18 2.00 Intake and Output 07/20/16 07/20/16 07/21/16 Cumulative From/Thru 15:00 23:00 07:00 07/18/16 09:29 - 07/21/16 06:44 Intake Total 2231 ml 1382 ml 8100 ml Output Total 1000 ml 750 ml 4250 ml Balance 1231 ml 632 ml 3850 ml Intake Oral 1078 ml 450 ml 2368 ml IV Total 1153 ml 932 ml 5252 ml FFP 480 ml Output Urine Total 1000 ml 750 ml 3950 ml Estimated Blood Loss 300 ml # Bowel Movements 0 0 Lab & Micro Results Laboratory Tests Test 07/21/16 04:50 White Blood Count 6.2th/mm3 (3.8-10.1) Red Blood Count 3.63mil/mm3 (3.90-5.20) Hemoglobin 10.0g/dL (12.0-15.6) Hematocrit 31.8% (35.0-46.0) Mean Corpuscular Volume 87.6fL (81-100) Mean Corpuscular Hemoglobin 27.5pg (27.0-35.0) Mean Corpuscular Hemoglobin Concent 31.4% (32.0-37.0) Red Cell Distribution Width 15.4% (12.3-15.4) Platelet Count 176bil/L (150-400) Neutrophils (%) (Auto) 62.7% (40-74) Lymphocytes (%) (Auto) 21.0% (14-46) Monocytes (%) (Auto) 11.1% (4-12) Eosinophils (%) (Auto) 4.7% (0-5) Basophils (%) (Auto) 0.3% (0-3) Prothrombin Time 11.1sec (8.1-12.5) Prothromb Time International Ratio 1.04ratio Sodium Level 141mEq/L (134-144) Potassium Level 4.1mEq/L (3.5-5.2) Chloride Level 104mEq/L (97-108) Carbon Dioxide Level 25mmol/L (18-29) Blood Urea Nitrogen 31mg/dL (8-27) Creatinine 0.89mg/dL (0.57-1.00) Estimat Glomerular Filtration Rate 89mL/min (>59) Glucose Level 116mg/dL (60-99) Calcium Level 8.8mg/dL (8.5-10.1) Total Bilirubin 0.7mg/dL (0.0-1.2) Aspartate Amino Transf (AST/SGOT) 19U/L (0-50) Alanine Aminotransferase (ALT/SGPT) 9U/L (0-32) Alkaline Phosphatase 137U/L (25-165) Total Protein 5.6g/dL (6.4-8.4) Albumin 2.6g/dL (3.4-5.0) Result Diagram: 07/21/1644907/21/16449 General Appearance: Alert, Oriented X3, Cooperative, No Acute Distress Extremities: Distal Pulses Palpable, No Compartment Syndrom Noted, Thigh & Calf Soft/Nontender Postop Sensory Motor: Distal Motor Intact, NVI Distally SURGICAL WOUND : Wound Location/Description Lateral right hip: 3 surgical wounds are clean dry and intact. Wounds are closed with vincenzo. Surgical dressings are removed and the wounds were cleansed with hydrogen peroxide. Island dressings were placed over each wound. Activity: Activity per PT, Ambulate with PT Catheters: Urethral 2 [address] [place] Assessment & Plan Impression POD-2 Right hip IM Nail Problems: Plan Weightbearing: Right lower extremity Toe-touch weightbearing with walker x 6 weeks DVT prophylaxis: Resume warfarin, pharmacy dosing. Lovenox to bridge until warfarin is therapeutic. ASA 81 mg Physical therapy for transfers, progressive ambulation, therapeutic exercise Wound care: dressing changed by PA today. Nursing may reinforce or change dressings as needed if saturated YANNICK Grove today Follow-up plan: In 2 weeks at [facility] with PA for wound check and at [address] Calvin with x-rays Pain Management: Oxycodone, gabapentin, Toradol, CONTROLLER INSTRUCTOR Dilaudid, Tylenol VTE Prophylaxis: Sub-Q Enoxaparin, Theraputic Anticoag with Warfarin, SCDs, Other (aspirin 81 mg) Resuscitation Status: CPR: Attempt Resuscitation [facility] FrancisKellie Oro PA-C Jul 21, 2016 10:14
--- NOTE | 2016-07-21 10:48 | NUR ---
[facility] signed
--- NOTE | 2016-07-21 13:43 | NUR ---
Evaluation completed. Please go to "Notes" then click on "Assessments and Notes" (bottom left corner of screen). Then select appropriate discipline tab on top of screen.
--- NOTE | 2016-07-21 14:58 | NUR ---
ACTIVITY/FRASER REMOVAL Patient was able to void spontaneously onto bedpan after catheter removal. 2 person assist with rolling onto bedpan. Worked with physical therapy and got to edge of bed, but was unable to stand at edge of bed. Patient needs lots of positive encouragement to change positions in bed and with therapy. TEST DESK TROUBLE LOCATOR dilaudid is in use and has been using oxycodone PO for pain mgmt. Care continues
--- NOTE | 2016-07-21 16:38 | NUR ---
Social Work-initial assessment: Data & Assessment: See initial assessment. Pt is a 76 y/o female who was admitted on 07/18/16 for Hip FX per H&P. Pt's insurance is [employer] and PCP is Arabella Ball MD. EMR Reviewed. Pt's readmission score is 2-no risk. SW met with pt and patient's family to discuss discharge planning, SW role explained and initial assessment was complete. Patient's NOK is her [id number] Eva Sterling [phone]. Pt is alert and oriented x3. Pt resides at home with family in a single level home with one step to enter where pt remains independent with basic ADLs. Pt uses a 4ww at baseline in house and a WC outside of the home. Patient does not drive. Pt has no HH history. Patient has been to a SNF in [place], but can not recall the name. Pt has not completed DPOA/ advanced directive and is not interested in information. Pt has no tuber machine cutter care or VA benefits. Pt's family have been assisting her at home. SW notified patient that in daily rounds the physician recommended SNF and provided patient with a choice list. Patient first choice was [facility], second choice [facility], third [facility] and fourth choice is [facility]. SW gave facilities access and faxed face sheet. Pt's family to provide transport at discharge, but will not beable to pick the patient up until 7pm. SW provided phone number and plan on white board in room. SW will continue to follow. Plan: Pt to likely discharge to SNF. Pt's family is supportive. Patient's son will transport her to SNF, but he will not beable to pick the patient up until 7pm. SW will continue to follow. Jeffery Angelo LMSW, [facility] Addendum: 07/21/16 at 1651 by JEFFERY ANGELO Amended: Links added.
[2016-07-21] MEDS: ENOXAPARIN SUBQ SCH ×2 (19:51)
--- NOTE | 2016-07-21 20:39 | PCM.PNMED ---
Subjective Date of Service Jul 21, 2016 Subjective Patient asked continues to complain of 10-10 pain but appears calm and cooperative during examination today. She was restarted on INFORMATION AND DATA ARCHITECT ANALYST Dilaudid last night with extremely minimal dose and has not used it at all per staff. Patient has not been up with physical therapy yet. She did sit at bedside yesterday for a few minutes. I discussed bridging therapy with her and recommended that she takes twice a day enoxaparin shots instead of heparin drip as this will hinder her physical therapy. She is agreeable to this. She states that she wants to work on getting better and going home. She does not like having to use the bedpan and months to wear briefs instead. Her Grove was removed yesterday. Denies overnight fever since chills denies dyspnea. She is able to move her left lower extremity but not right Exam Vital Signs Vital Sign - Last Date Time Temp Pulse Resp B/P Pulse Ox O2 Delivery O2 Flow Rate FiO2 07/21/16 05:36 18 07/21/16 05:19 63 07/21/16 03:39 97 07/20/16 22:00 Supplement Oxygen 07/20/16 20:09 37.0 119/68 07/20/16 15:18 2.00 Intake and Output 07/20/16 07/20/16 07/21/16 Cumulative From/Thru 15:00 23:00 07:00 07/18/16 09:29 - 07/21/16 03:39 Intake Total 2231 ml 932 ml 7650 ml Output Total 1000 ml 3500 ml Balance 1231 ml 932 ml 4150 ml Intake Oral 1078 ml 1918 ml IV Total 1153 ml 932 ml 5252 ml FFP 480 ml Output Urine Total 1000 ml 3200 ml Estimated Blood Loss 300 ml # Bowel Movements 0 Exam Gen.: No acute distress. Pale Appearing obese female HEENT: Normocephalic, atraumatic Heart: Regular rate and rhythm no S3-S4 sounds Lungs: Clear to auscultation anteriorly limited by body mass Abdomen: Soft nontender nondistended, bowel sounds are present Extremities: She is able to lift her right leg but not the left one. Psych negative for anxiety or agitation more cooperative today Neuro: No focal deficits Lab and Diagnostics Result Diagram: 07/21/16 0450 07/21/16 0450 X-Rays, CTs and MRIs [facility] [place] [address] Patient Name: ANNABEL HUGHES MR#: [id number] [place] [facility] [place] Phys: Bryant Cummings MD Date of Service: 07/18/16 1047 PROCEDURE: MRI LUMBAR SPINE WITHOUT CONTRAST ([id number]) INDICATIONS: New L Sciatica, anticoagulated TECHNIQUE: Noncontrast sagittal T1 spin echo and T2 fast echo, sagittal STIR, axial T1 and T2 fast spin echo through the lumbar spine. In cases with scoliosis, additional coronal T2 fast spin echo may be performed. COMPARISON: None. FINDINGS: Image quality: Excellent. Alignment and Curvature: There is trace L3 on L4 and L4-L5 retrolisthesis. There is convex right curvature of the lumbar spine; recommend correlation with weight-bearing plain film radiographs to exclude scoliosis. Bone Marrow: Changes noted adjacent to the L2-L3, L3-L4, L4-L5 and L5-S1 discs.. No acute vertebral body compression fractures. Spinal Cord: Conus medullaris terminates at the L1 level. Visualized cord demonstrates normal signal and size. Paraspinous Soft Tissues: No paravertebral masses. L1-L2: Loss of disc signal. Mild bilateral facet hypertrophy. Moderate ligamentum flavum hypertrophy. Mild narrowing of the central canal secondary to disc disease mild bilateral neural foraminal narrowing secondary to disc and facet disease. No neural impingement. L2-L3: Loss of disc signal. Minimal, diffuse disc bulge. Moderate facet and moderate ligamentum flavum hypertrophy. Mild to moderate narrowing of the central canal secondary to disc disease and posterior element hypertrophy. Mild bilateral neuroforaminal narrowing secondary to disc and facet disease. No neural impingement. Focal high density zone in the anterior annulus compatible with a fissure. L3-L4: Loss of disc signal and height. Moderate, diffuse disc bulge. Moderate facet and moderate ligamentum flavum hypertrophy. Moderate to severe narrowing of the central canal secondary to disc disease and posterior element hypertrophy. Moderate bilateral neuroforaminal narrowing secondary to disc and facet disease. Fluid signal noted in the intervertebral disc space which can represent reactive change versus earliest manifestation of discitis; please correlate clinical and laboratory data. L4-L5: Loss of disc signal. Mild, diffuse disc bulge. Large central disc protrusion superimposed on diffuse disc bulge. Moderate facet and moderate ligamentum flavum hypertrophy. Severe central stenosis secondary to disc disease and posterior element hypertrophy. Severe right and [id number] left neural foraminal narrowing secondary to disc and facet disease. Focal high density zone in the anterior annulus compatible with a fissure. L5-S1: Loss of disc signal. Mild, diffuse disc bulge with small central disc protrusion superimposed on diffuse disc bulge. Severe facet and moderate ligamentum flavum hypertrophy. Moderate narrowing of the central canal secondary to disc disease and posterior element hypertrophy. Severe right and mild left neural foraminal narrowing secondary to disc and facet disease. IMPRESSION: 1. Convex right curvature recommend weight-bearing plain film radiographs of the lumbar spine when clinically feasible to exclude scoliosis. 2. Grade I L3-L4 and L4-5 degenerative spondylolisthesis. 3. Multilevel degenerative disc disease. 4. Multilevel facet arthropathy. 5. Severe L4-L5 central canal stenosis. Moderate to severe L3-L4 central canal narrowing. Moderate L5-S1 central are present mild L1-L2 and L2-L3 central canal narrowing. 6. Severe right and moderate severe left L4-L5 neural foramen. Severe right and mild left L5-S1 neural foraminal narrowing. Moderate bilateral L2-L4 neural foraminal narrowing. Mild bilateral L1-L2 and L2-L3 neuroforaminal narrowing. 7. L2-L3 and L4-L5 disc annulus fissures. 8. Fluid signal in the L3-L4 disc space likely representing a reactive change, however finding is nonspecific and correlation with clinical laboratory data is recommended to exclude a very early manifestation of discitis. Dictated by: Daniela Diane MD, PhD on 07/18/2016 at 15:04 Approved by: Daniela Diane MD, PhD on 07/18/2016 at 15:12 [facility] [place] [place] [address] Patient Name: ANNABEL HUGHES MR#: [id number] [place] [facility] [facility] [place]ing Phys: Bryant Cummings MD Date of Service: 07/18/16 1013 PROCEDURE: X-RAY CHEST ONE VIEW ([id number]) INDICATIONS: HIP FRACTURE TECHNIQUE: One view of the chest was acquired. COMPARISON: [facility], CR, XR CHEST 1V PORTABLE, 03/25/2016, 1: 24 AM. [facility], CT, CT BIOPSY LUNG, 06/10/2016, 1:47 PM. [facility], CR, XR CHEST 1V PORTABLE, 06/11/2016, 7:41 AM. FINDINGS: Surgical changes and devices: Surgical clips at the gastroesophageal junction. Lungs and pleura: No pleural effusions or pneumothorax. Lungs are clear. Elevation of the right hemidiaphragm is stable compared to prior examination. Mediastinum: Mediastinal contours appear normal. Heart size is normal. Bones and chest wall: No suspicious bony lesions. Overlying soft tissues appear unremarkable. IMPRESSION: No acute cardiopulmonary disease process. Dictated by: Daniela Diane MD, PhD on 07/18/2016 at 10:43 Approved by: Daniela Diane MD, PhD on 07/18/2016 at 10:44 [facility] Diagnostic Imaging Department [place], [place] [id number] Patient Name: ANNABEL HUGHES MR#: [id number] Location: [facility] Ordering Phys: URIAH TIMMONS MD Date of Service: 07/18/16 0953 PROCEDURE: X-RAY PELVIS W/LAT HIP (RT) ([id number]) INDICATIONS: fall; rt hip pain TECHNIQUE: AP pelvis with lateral view(s) of the right hip(s). COMPARISON: None. FINDINGS: Bones: Displaced right subtrochanteric hip fracture noted. Bilateral hip osteoarthritic degenerative changes are noted. Pelvic ring appears intact. No suspicious bony lesions. Soft tissues: The visualized bowel gas pattern is normal. No suspicious soft tissue calcifications. Bilateral groin surgical clips noted. IMPRESSION: Right subtrochanteric femur fracture. Dictated by: Daniela Diane MD, PhD on 07/18/2016 at 10:42 Approved by: Daniela Diane MD, PhD on 07/18/2016 at 10:43 12-lead ECG Rate controlled A. fib Cardiac Echo Impressions Cardiac echo is pending [facility] Diagnostic Imaging Department [place], [place] [id number] Patient Name: ANNABEL HUGHES MR#: [id number] Location: [facility] Ordering Phys: Megan rCespo DO Date of Service: 07/20/16 1235 [facility] [address] [place] [address] Echocardiogram Report Name: ANNABEL HUGHES KStudy Date: 07/20/2016 Height: 67 in Hospital Exam Location: [facility] Weight: 249 lb Gender: Female BSA: 2.2 m2 : 1940 Age: 76 yrs BP: 114/69 mmHg Reason For Study: Arrhythmia Ordering Physician: [facility] Performed By: Rosaura Jacob Referring Physician: ELISA Ball Interpretation Summary Afib with controlled rate. Normal LV size and wall thickness; normal wall motion and LV systolic function. EF is 60-65%. Severe LA enlargement; otherwise normal chamber sizes. There is a possible TINY PFO present with a very small amount of left to right shunting. Mitral valve leaflets are moderately thickened; there is moderate MAC without associated MR. Aortic valve leaflets are moderately calcified and thickened (especially the non-coronary leaflet). There is no regurgitation or stenosis. No prior echo is available for comparison. Procedure: A two-dimensional transthoracic echocardiogram with color flow and Doppler was performed. The study quality was technically adequate. There is no prior echocardiogram noted for this patient. The heart rate ranged between 66-77 bpm during the study. Left Ventricle: The left ventricle is normal in size, wall thickness, and systolic function without any focal wall motion abnormalities. The ejection fraction is estimated to be 60-65%. Diastolic function could not be accurately assessed due to unobtainable data. Right Ventricle: The right ventricle is normal in size, thickness and function. Atria: The left atrium is moderately dilated. Right atrial size is normal. Probable PFO identified, with left to right shunt. Mitral Valve: The mitral valve leaflets appear moderately thickened, but open well. The mitral valve leaflets are mildly calcified. There is moderate mitral annular calcification. There is no mitral regurgitation noted. Aortic Valve: The aortic valve is trileaflet. The aortic valve opens well. The aortic valve is moderately calcified. There is trace aortic regurgitation. Tricuspid Valve: The tricuspid valve is normal in structure and function. There is trace tricuspid regurgitation. The right ventricular systolic pressure is estimated at 45 mmHg assuming a right atrial pressure of 8 mm Hg. Pulmonic Valve: The pulmonic valve is not well seen, but is grossly normal. There is mild pulmonic regurgitation. Great Vessels: The aortic root is normal size. The dimensions of the ascending aorta are normal. The IVC is dilated (diameter is greater than 2.1 cm) and it collapses less than 50% with a sniff. This suggests a high right atrial pressure of 15 mm Hg. The IVC is dilated (diameter is greater than 2.1 cm) yet it collapses greater than 50% with a sniff. This suggests a right atrial pressure of 8 mm Hg. Pericardium/ Pleura There is no pericardial effusion. There is no pleural effusion. MMode/2D Measurements & Calculations LVIDd: 5.1 cm LA dimension: 5.0 cm RA long axis Ao root diam LVIDs: 3.1 cm FS: 40.1 % LA A2 area: 24.4 cm RA area Aortic Jxn: 2.4 cm IVSd: 0.86 cm LA A4 area: 28.2 cm asc Aorta Diam LVPWd: 0.94 cm LA length (vol) : 18.1 cm RA vol Ao Arch Diam (Prox LA vol: 98.7 ml : 55.8 ml Trans): 3.0 cm LA vol index RA : 25.1 mm/ RVDd major IVC diam: 2.3 cm : 4.3 cm LV encarnacion. diameter/BSA LV sys. diameter/BSA RVD1 (basal) RVD2 (mid): 3.7 cm (cm/m^2): 2.3 (cm/m^2): 1.4 Doppler Measurements & Calculations Ao V2 max MV P1/2t: 67.9 msec Med Peak E' Matthew TR max matthew : 144.0 cm/sec : 305.8 cm/sec Ao max PG Lat Peak E' Matthew TR max PG : 8.3 mmHg : 13.2 cm/sec : 37.4 mmHg Ao mean PG PA V2 max : 4.7 mmHg : 116.9 cm/sec PA mean PG PA Accel Time : 0.08 sec MV V2 mean MV P1/2t max matthew Ao V2 mean PA V2 mean : 73.2 cm/sec : 101.0 cm/sec : 61.7 cm/sec MV mean PG MVA(P1/2t): 3.2 cm2 Ao V2 VTI: 30.4 cm MV V2 VTI : 21.8 cm Reading Physician:06:17 PM Assessment & Plan Assessment #1 right femur subtrochanteric fracture as evidenced by the x-ray: -- Consult orthopedics. They may take patient to work tomorrow a.m. -- Pain control with Dilaudid pump initial settings were increased due to patient's findings on the scans as well as due to her high tolerance for pain medications -- INR is 2.5 in the ER vitamin K by mouth 10 mg is given, follow-up INR is only 2.4 slightly better. She is given 2 units of FFP -Echocardiogram is ordered due to prior cardiac history results is also pending -- Nothing by mouth diet after midnight -- She was given 2 units of FFP night before this a.m. her INR was 1.46. Her surgeon was notified. She underwent left hip replacement arthroplasty on -- Patient is not moving much, has been difficult for PT OT to work with her due to her inability to move. So far she was only able to sit up on her bed with PT OT yesterday. -- Continue to work with PT OT, consider senior living home for rehabilitation -- Per Ortho, Weightbearing: Right lower extremity Toe-touch weightbearing with walker x 6 weeks -- Arthritis handling dressing changes -- Grove was removed yesterday -- VT prophylaxis: As she is deemed a high risk candidate we will initiate bridging her with enoxaparin 113 units twice a day enoxaparin until therapeutic INR is achieved. Patient is agreeable to this plan C hronic conditions: Severe central canal stenosis as evidenced by the lumbar MRI: -- Discussed this findings with orthopedics in the a.m. a.m. --She is on chronic pain medications at home she has no prescriber at the present time - She is currently in a pain pump with Dilaudid 0.4 mg total/hr, does not seem to be using it much -- She is taking by mouth pain meds, however Chronic pain syndrome: -- Most likely due to the above findings as evidenced by the lumbar MRI. -- Patient is not very clear on how frequently she takes her home morphine most of which is i--IR formulation. She states that she did not fill them recently because she does not take them all the time. -- Dilaudid pump with minimal settings as above plus oxycodone for surgery -- She also has a diagnosis of colon cancer from less than a month ago Anxiety: Continue Xanax home with home medication Chronic atrial fibrillation: --Coumadin is restarted, INR 1.0 --Since she had a Ultracet 3 which is high risk for bleeding the recommendation is to start bridging her high risk candidate (High CHADS2 score, obesity, foramina ovale as demonstrated by recent echogram) --Pharmacy consult --Orthopedic surgeries (Dr. Koroma) notified of bridging consideration and they are agreeable to this Chronic hypertension -- Continue home medications. CAD: -- Continue home medications. -- Echo is performed today showed a concern for foramen ovale -- Aspirin restarted COPD: -- Plan to continue home medications DM 2: -- She declined diabetic diet disease on general diet -- Sliding scale low coverage -- HbA1c is 6.2 Disposition: Patient may have to go to senior living rehabilitation for PTOT due to lack of mobility issues and chronic pain issues. Social work is working on finding an appropriate placement. Consider converting to all by mouth meds tomorrow a.m. VTE Prophylaxis: Sub-Q Enoxaparin, Other (sub-therapeutic currently on Coumadin ) VTE Mechanical Devices: Intermittant Pneumatic CD Resuscitation Status: CPR: Attempt Resuscitation Megan Crespo DO Jul 21, 2016 06:24
[2016-07-22] VITALS (9 sets, daily range): BP systolic 90–151; BP diastolic 52–78; PULSE 68–93; RESP 16–18; O2SAT 96–97
[2016-07-22] MEDS: Sodium Chloride LOK Flush 10 mL Syringe IV SCH ×3 (01:46→17:16)
--- NOTE | 2016-07-22 01:56 | NUR ---
; pt voiding qs but adamantly refused to use bedpan stating it hurt too much and that since she has incontinency problems anyway, she is voiding in her brief. Explained possibility of skin breakdown from urine but pt still refused bedpan. GI; Offered laxative (no bm since before admit) but pt declined stating it makes her sick.
[2016-07-22 05:41] LABS: BASOPHILS % (AUTO) 0.5 % (0-3); EOSINOPHILS % (AUTO) 5.4 % (0-5); Mean Corpuscular Hemoglobin 27.3 pg (27.0-35.0); Mean Corpuscular Volume 88.3 fL (81-100); NEUTROPHILS % (AUTO) 56.4 % (40-74); Platelet Count 185 bil/L (150-400)
[2016-07-22 05:57] LABS: INR 1.06 ratio
[2016-07-22] MEDS: hydrOXYzine Pamoate 25 mg Capsule PO PRN ×2 (06:05→13:32)
--- NOTE | 2016-07-22 06:50 | PCM.PNORTH ---
Subjective Date of Service: Jul 22, 2016 Visit Information: Reason for Visit Rt Hip Fx Surgery/Surgery Date Post-Op Day # Date of Admission: Jul 18, 2016 at 11:28 Hospital Day # Subjective Found the patient awake and alert and supine in bed. Well positioned. Patient shows no signs of discomfort or distress but states she is in terrible pain. I discussed with her this morning likely discharge to longterm facility and patient is aware of this. I have encouraged her to talk with her nurse regarding pain medication prior to therapy and to participate as well as she can possibly with therapy in order to gain mobility and return to her previously multiple life. 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 Postoperative dressings are intact and proximal dressing is slightly soiled. Calf and thigh are soft patient states thigh is painful when palpated. No ecchymosis, bruising or erythema is noted.. Toe wiggle and sensation are intact at right lower extremity distally. Grove is absent. SCDs are present at the bedside but are not on. Vital Signs and I/O Vital Sign - Last Date Time Temp Pulse Resp B/P Pulse Ox O2 Delivery O2 Flow Rate FiO2 07/22/16 05:18 36.9 84 16 133/78 97 Room Air 07/20/16 15:18 2.00 Intake and Output 07/21/16 07/21/16 07/22/16 Cumulative From/Thru 15:00 23:00 07:00 07/18/16 09:29 - 07/22/16 05:18 Intake Total 2235 ml 677 ml 12099 ml Output Total 1200 ml 1126 ml 6576 ml Balance 1035 ml -449 ml 4436 ml Intake Oral 1156 ml 250 ml 3774 ml IV Total 1079 ml 427 ml 6758 ml FFP 480 ml Output Urine Total 1200 ml 1126 ml 6276 ml Estimated Blood Loss 300 ml # Voids 4 4 # Bowel Movements 0 0 Lab & Micro Results Laboratory Tests Test 07/22/16 05:15 White Blood Count 5.8th/mm3 (3.8-10.1) Red Blood Count 3.26mil/mm3 (3.90-5.20) Hemoglobin 8.9g/dL (12.0-15.6) Hematocrit 28.8% (35.0-46.0) Mean Corpuscular Volume 88.3fL (81-100) Mean Corpuscular Hemoglobin 27.3pg (27.0-35.0) Mean Corpuscular Hemoglobin Concent 30.9% (32.0-37.0) Red Cell Distribution Width 15.6% (12.3-15.4) Platelet Count 185bil/L (150-400) Neutrophils (%) (Auto) 56.4% (40-74) Lymphocytes (%) (Auto) 24.4% (14-46) Monocytes (%) (Auto) 13.0% (4-12) Eosinophils (%) (Auto) 5.4% (0-5) Basophils (%) (Auto) 0.5% (0-3) Prothrombin Time 11.4sec (8.1-12.5) Prothromb Time International Ratio 1.06ratio Sodium Level 137mEq/L (134-144) Potassium Level 4.0mEq/L (3.5-5.2) Chloride Level 103mEq/L (97-108) Carbon Dioxide Level 24mmol/L (18-29) Blood Urea Nitrogen 22mg/dL (8-27) Creatinine 0.69mg/dL (0.57-1.00) Estimat Glomerular Filtration Rate 119mL/min (>59) Glucose Level 124mg/dL (60-99) Calcium Level 8.5mg/dL (8.5-10.1) Total Bilirubin 0.7mg/dL (0.0-1.2) Aspartate Amino Transf (AST/SGOT) 16U/L (0-50) Alanine Aminotransferase (ALT/SGPT) 6U/L (0-32) Alkaline Phosphatase 123U/L (25-165) Total Protein 4.9g/dL (6.4-8.4) Albumin 2.5g/dL (3.4-5.0) Result Diagram: 07/22/1651407/22/16514 General Appearance: Alert, Oriented X3, Cooperative, No Acute Distress Extremities: No Compartment Syndrom Noted, Thigh & Calf Soft/Nontender Postop Sensory Motor: Distal Motor Intact, Movement in Toes, Distal Sensation Intact Activity: Activity per PT, Ambulate with PT (touch toe weightbearing only at the right lower extremity 6 weeks using a front wheeled walker.) Catheters: None Assessment & Plan Impression Patient is an obese 76-year-old female who has undergone a right femoral nailing on 07/19/[address] Sourav Calvin. Patient has resisted physical therapy and mobility secondary to stated discomfort. She has at this time on postop day #3 not achieved [id number] or any gait since surgery. Problems: Plan Postop day #3 from right femoral IM nail placement on 07/19/[address] Sourav Calvin Continue touch toe weightbearing only on the right lower extremity 6 weeks postop using a front wheeled walker. Continue formal physical therapy efforts to achieve mobility, gait and safety. Continue pain medication as needed and move patient to by mouth pain medication as soon as possible. Continue DVT prophylaxis using return to chronic Coumadin with Lovenox bridging per pharmacy dosing and hospitalist service. Change postoperative dressings as needed for looseness and soiling. Grove is absent. Patient may shower on postop day 3-4 if wounds are clean and dry for 24 hours. Follow-up in 2 weeks at [facility] orthopedic clinic with [facility] provider for wound check and suture removal. Follow-up in 6 weeks at [facility] orthopedic clinic with Dr. Calvin with 2 view right femur x-rays on arrival. Orthopedics thanks hospitalist service for their help in the medical management of this patient. Orthopedics will sign off at this time it is always we will remain available for consultation or treatment as needed. Anticipate discharge to longterm facility by hospitalist service today on postop day #3 or when deemed medically appropriate to do so by hospitalist service. VTE Prophylaxis: Sub-Q Enoxaparin, Theraputic Anticoag with Warfarin, SCDs, Other (sub-therapeutic currently on Coumadin) Resuscitation Status: CPR: Attempt Resuscitation Emilio Burns PA-C Jul 22, 2016 06:50
[2016-07-22] MEDS: Insulin LISPRO 300 Unit/3 mL Inj SUBQ SCH ×4 (08:00→22:00)
[2016-07-22] MEDS: Senna-Docusate 8.6-50 mg Tablet PO SCH ×2 (08:58→22:20)
[2016-07-22] MEDS: ENOXAPARIN SUBQ SCH ×2 (09:20)
--- NOTE | 2016-07-22 10:15 | NUR ---
[facility] can accept patient when ready with to follow Updated SOIL BIOLOGY TEACHER Addendum: 07/22/16 at 1148 by EVELYN GRECO CM [facility] can accept patient with [facility] to follow [facility] can accept patient with [facility] to follow
--- NOTE | 2016-07-22 12:20 | PCM.PHAPRO ---
Progress Warfarin Management by Pharmacy: -Indication: afib -Home Dose: warfarin 6mg daily -Concurrent Anticoagulation: Enoxaparin 110mg subq [id number] -Inr Goal: 2-3 -Coagulation Trends: 07/20 Inr 1.10 warfarin 6mg 07/21 Inr 1.04 warfarin 6mg 07/22 Inr 1.06 Date INR 1.43 -[id number] SCORE: 6 PLAN: pt had received phytonadione 10mg on 07-18 and FFP. will likely show warfarin resistance for ~ 7 days. warfarin 7.5mg x 1 will be ordered this evening and pharmacy will monitor Amarilis Quezada [facility] Jul 22, 2016 12:20
[2016-07-22] MEDS: Ketorolac 15 mg/mL Inj IVPUSH PRN (13:32)
[2016-07-22] MEDS: Morphine ER 30 mg (MS Contin) Tablet PO SCH ×2 (13:32→22:20)
--- NOTE | 2016-07-22 14:49 | PROG NOTE ---
[address] [address] PROGRESS NOTE PATIENT: ANNABEL HUGHES : 1940 MR#: [id number] ADMIT: 07/18/2016 JOB ID: [id number] DATE: 07/22/2016 INFECTIOUS DISEASE FOLLOW UP NOTE: REASON FOR FOLLOWUP: Pulmonary histo in a patient about to receive cancer chemotherapy who just broke her hip. INTERVAL HISTORY: Over the weekend, the patient has had a terrible time with pain in her right hip after her pinning. She has been really unable to get up at all and just today for the first time stood up briefly at the side of the bed but can do no more. She complains of terrible pain, and in fact, has been refusing Lovenox because of the pain of the injections not to mention the pain in her hip. She has no fevers, chills, sweats or cough, however. PHYSICAL EXAMINATION: Reveals an elderly woman lying in bed, in obvious distress. Temperature 36.9, pulse 68, respiratory rate 18, blood pressure 116/65. Mental status clear. Oral cavity negative. Lungs relatively clear. Cardiac tones: Distant regular rate and rhythm. Abdomen: Obese, soft, nontender. The right hip surgical incision site looks benign. No skin rash. LABORATORIES: Include a white count of 5800, 5% eosinophils, creatinine 0.69. LFTs are normal. No new labs are available at this point. IMPRESSION: This is an unfortunate woman who in the last six months has been diagnosed with pulmonary histoplasmosis, rectal carcinoma which is yet to be treated and last week fell and broke her right hip. She is now really failing to progress after her right hip has been pinned because she has lot of pain and does not want to do much with physical therapy. All this is compounded by the fact she has chronically been on morphine at home which makes it very difficult to control her pain now that she has suffered a fracture. With respect to the histoplasmosis, I think our recommendation would be three months of itraconazole 200 mg p.o. b.i.d. with close attention to her cardiac function to make sure her CHF does not worsen on itraconazole. If it were to worsen on itraconazole, we would consider a change to fluconazole or voriconazole or posaconazole.
--- NOTE | 2016-07-22 15:32 | NUR ---
Mobility/Incontinence/Pain Patient lacking motivation to mobilize. She states "it just hurts too much" despite changing pain medication regimen multiple time. Worked with PT this am and was able to stand at bedside. Discussed restarting pt on home pain med regimen with MD to include MS shannon and Melanie. 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 Awaiting PM PT assessment. PT recommending SNF at this time. Patient will not get up out of bed to use BSC and refuses at times to use bedpan, citing pain as the reason, therefore, becoming incontinent intermittently. Educated patient on risks of skinbreakdown and UTI from incontinence. Patient verbalizes understanding.
[2016-07-22] MEDS: HYDROcodone-APAP 10-325 mg PO PRN (15:45)
--- NOTE | 2016-07-22 16:16 | NUR ---
Social Work Note - Continued Discharge Planning: D/A: SW received message from the Pts [id number] Sarah regarding plan and update, SW t/c to [id number]. SW informed Sarah that the Pt has been accepted to [facility], [facility], and [facility] (listed in preference order). SW informed Sarah that the Pt is not ready for discharge, will inform Sarah when additional information is available regarding discharge date and time. Family agreeable for Pt to transfer to SNF via cabulance. SW met with the Pt for discharge planning update, Pt agreeable for SNF services. SW will continue to follow. P: Pt is not medically stable for discharge. PT eval completed, recommending SNF via cabulance. Pt has been accepted to [facility], [facility], and [facility] (listed in preference order). SW will continue to follow. Laquita Newell, SUSTAINABLE DESIGN COORDINATOR [employer] TY Maxwell
[2016-07-22] MEDS ORDERED: Warfarin 5 MG, Warfarin 2.5 MG PO SCH ×2 (17:00)
--- NOTE | 2016-07-22 18:40 | PCM.PNMED ---
Subjective Date of Service Jul 22, 2016 Subjective reports continued right hip pain. denies any other new issues/complaints Exam Vital Signs Vital Sign - Last Date Time Temp Pulse Resp B/P Pulse Ox O2 Delivery O2 Flow Rate FiO2 07/22/16 16:13 Supplement Oxygen 07/22/16 15:09 36.9 93 18 151/56 97 07/20/16 15:18 2.00 Intake and Output 07/21/16 07/21/16 07/22/16 Cumulative From/Thru 15:00 23:00 07:00 07/18/16 09:29 - 07/22/16 05:18 Intake Total 2235 ml 677 ml 91016 ml Output Total 1200 ml 1126 ml 6576 ml Balance 1035 ml -449 ml 4436 ml Intake Oral 1156 ml 250 ml 3774 ml IV Total 1079 ml 427 ml 6758 ml FFP 480 ml Output Urine Total 1200 ml 1126 ml 6276 ml Estimated Blood Loss 300 ml # Voids 4 4 # Bowel Movements 0 0 General: Alert, Cooperative, No Acute Distress Eyes: Scleral Anicteric Mouth: Mucous Membr Moist/[place] Neck: Supple Chest & Lungs: Chest Wall Normal, Clear to auscultation & percussion Cardiovascular: Regular Rate/Rhythm Abdomen: Non-tender, Non-distended, Normoactive bowel tones, Soft Extremities: No cyanosis/clubbing/edma bilat Neurological: Grossly Neurologically Intact, Normal Speech IVs and Medications Medications Reviewed: Medications were reviewed in detail Lab and Diagnostics Result Diagram: 07/22/1615 07/22/16 0515 X-Rays, CTs and MRIs [facility] Diagnostic Imaging Department [place], [place] [id number] Patient Name: ANNABEL HUGHES MR#: [id number] [place] [facility] [place] Ordering Phys: Bryant Cummings MD Date of Service: 07/18/16 1047 PROCEDURE: MRI LUMBAR SPINE WITHOUT CONTRAST ([id number]) INDICATIONS: New L Sciatica, anticoagulated TECHNIQUE: Noncontrast sagittal T1 spin echo and T2 fast echo, sagittal STIR, axial T1 and T2 fast spin echo through the lumbar spine. In cases with scoliosis, additional coronal T2 fast spin echo may be performed. COMPARISON: None. FINDINGS: Image quality: Excellent. Alignment and Curvature: There is trace L3 on L4 and L4-L5 retrolisthesis. There is convex right curvature of the lumbar spine; recommend correlation with weight-bearing plain film radiographs to exclude scoliosis. Bone Marrow: Changes noted adjacent to the L2-L3, L3-L4, L4-L5 and L5-S1 discs.. No acute vertebral body compression fractures. Spinal Cord: Conus medullaris terminates at the L1 level. Visualized cord demonstrates normal signal and size. Paraspinous Soft Tissues: No paravertebral masses. L1-L2: Loss of disc signal. Mild bilateral facet hypertrophy. Moderate ligamentum flavum hypertrophy. Mild narrowing of the central canal secondary to disc disease mild bilateral neural foraminal narrowing secondary to disc and facet disease. No neural impingement. L2-L3: Loss of disc signal. Minimal, diffuse disc bulge. Moderate facet and moderate ligamentum flavum hypertrophy. Mild to moderate narrowing of the central canal secondary to disc disease and posterior element hypertrophy. Mild bilateral neuroforaminal narrowing secondary to disc and facet disease. No neural impingement. Focal high density zone in the anterior annulus compatible with a fissure. L3-L4: Loss of disc signal and height. Moderate, diffuse disc bulge. Moderate facet and moderate ligamentum flavum hypertrophy. Moderate to severe narrowing of the central canal secondary to disc disease and posterior element hypertrophy. Moderate bilateral neuroforaminal narrowing secondary to disc and facet disease. Fluid signal noted in the intervertebral disc space which can represent reactive change versus earliest manifestation of discitis; please correlate clinical and laboratory data. L4-L5: Loss of disc signal. Mild, diffuse disc bulge. Large central disc protrusion superimposed on diffuse disc bulge. Moderate facet and moderate ligamentum flavum hypertrophy. Severe central stenosis secondary to disc disease and posterior element hypertrophy. Severe right and [id number] left neural foraminal narrowing secondary to disc and facet disease. Focal high density zone in the anterior annulus compatible with a fissure. L5-S1: Loss of disc signal. Mild, diffuse disc bulge with small central disc protrusion superimposed on diffuse disc bulge. Severe facet and moderate ligamentum flavum hypertrophy. Moderate narrowing of the central canal secondary to disc disease and posterior element hypertrophy. Severe right and mild left neural foraminal narrowing secondary to disc and facet disease. IMPRESSION: 1. Convex right curvature recommend weight-bearing plain film radiographs of the lumbar spine when clinically feasible to exclude scoliosis. 2. Grade I L3-L4 and L4-5 degenerative spondylolisthesis. 3. Multilevel degenerative disc disease. 4. Multilevel facet arthropathy. 5. Severe L4-L5 central canal stenosis. Moderate to severe L3-L4 central canal narrowing. Moderate L5-S1 central are present mild L1-L2 and L2-L3 central canal narrowing. 6. Severe right and moderate severe left L4-L5 neural foramen. Severe right and mild left L5-S1 neural foraminal narrowing. Moderate bilateral L2-L4 neural foraminal narrowing. Mild bilateral L1-L2 and L2-L3 neuroforaminal narrowing. 7. L2-L3 and L4-L5 disc annulus fissures. 8. Fluid signal in the L3-L4 disc space likely representing a reactive change, however finding is nonspecific and correlation with clinical laboratory data is recommended to exclude a very early manifestation of discitis. Dictated by: Daniela Diane MD, PhD on 07/18/2016 at 15:04 Approved by: Daniela Diane MD, PhD on 07/18/2016 at 15:12 [facility] Diagnostic [place] [address] Patient Name: ANNABEL HUGHES MR#: [id number] Location: [facility] [place] Ordering Phys: Bryant Cummings MD Date of Service: 07/18/16 1013 PROCEDURE: X-RAY CHEST ONE VIEW ([id number]) INDICATIONS: HIP FRACTURE TECHNIQUE: One view of the chest was acquired. COMPARISON: [facility], CR, XR CHEST 1V PORTABLE, 03/25/2016, 1: 24 AM. [facility], CT, CT BIOPSY LUNG, 06/10/2016, 1:47 PM. [facility], CR, XR CHEST 1V PORTABLE, 06/11/2016, 7:41 AM. FINDINGS: Surgical changes and devices: Surgical clips at the gastroesophageal junction. Lungs and pleura: No pleural effusions or pneumothorax. Lungs are clear. Elevation of the right hemidiaphragm is stable compared to prior examination. Mediastinum: Mediastinal contours appear normal. Heart size is normal. Bones and chest wall: No suspicious bony lesions. Overlying soft tissues appear unremarkable. IMPRESSION: No acute cardiopulmonary disease process. Dictated by: Daniela Diane MD, PhD on 07/18/2016 at 10:43 Approved by: Daniela Diane MD, PhD on 07/18/2016 at 10:44 [facility] Diagnostic Imaging Department [place], [place] [id number] Patient Name: ANNABEL HUGHES MR#: [id number] Location: [facility] Ordering Phys: URIAH TIMMONS MD Date of Service: 07/18/16 0953 PROCEDURE: X-RAY PELVIS W/LAT HIP (RT) ([id number]) INDICATIONS: fall; rt hip pain TECHNIQUE: AP pelvis with lateral view(s) of the right hip(s). COMPARISON: None. FINDINGS: Bones: Displaced right subtrochanteric hip fracture noted. Bilateral hip osteoarthritic degenerative changes are noted. Pelvic ring appears intact. No suspicious bony lesions. Soft tissues: The visualized bowel gas pattern is normal. No suspicious soft tissue calcifications. Bilateral groin surgical clips noted. IMPRESSION: Right subtrochanteric femur fracture. Dictated by: Daniela Diane MD, PhD on 07/18/2016 at 10:42 Approved by: Daniela Diane MD, PhD on 07/18/2016 at 10:43 12-lead ECG Rate controlled A. fib Cardiac Echo Impressions Cardiac echo is pending [facility] Diagnostic Imaging Department [place], [place] [id number] Patient Name: ANNABEL HUGHES MR#: [id number] Location: [facility] Ordering Phys: Megan Crespo DO Date of Service: 07/20/16 1235 [facility] [address] [place] [address] Echocardiogram Report Name: ANNABEL HUGHES KStudy Date: 07/20/2016 Height: 67 in Hospital Exam Location: [facility] Weight: 249 lb Gender: Female BSA: 2.2 m2 : 1940 Age: 76 yrs BP: 114/69 mmHg Reason For Study: Arrhythmia Ordering Physician: HOSPITALIST [facility] Performed By: Rosaura Jacob Referring Physician: ELISA Ball Interpretation Summary Afib with controlled rate. Normal LV size and wall thickness; normal wall motion and LV systolic function. EF is 60-65%. Severe LA enlargement; otherwise normal chamber sizes. There is a possible TINY PFO present with a very small amount of left to right shunting. Mitral valve leaflets are moderately thickened; there is moderate MAC without associated MR. Aortic valve leaflets are moderately calcified and thickened (especially the non-coronary leaflet). There is no regurgitation or stenosis. No prior echo is available for comparison. Procedure: A two-dimensional transthoracic echocardiogram with color flow and Doppler was performed. The study quality was technically adequate. There is no prior echocardiogram noted for this patient. The heart rate ranged between 66-77 bpm during the study. Left Ventricle: The left ventricle is normal in size, wall thickness, and systolic function without any focal wall motion abnormalities. The ejection fraction is estimated to be 60-65%. Diastolic function could not be accurately assessed due to unobtainable data. Right Ventricle: The right ventricle is normal in size, thickness and function. Atria: The left atrium is moderately dilated. Right atrial size is normal. Probable PFO identified, with left to right shunt. Mitral Valve: The mitral valve leaflets appear moderately thickened, but open well. The mitral valve leaflets are mildly calcified. There is moderate mitral annular calcification. There is no mitral regurgitation noted. Aortic Valve: The aortic valve is trileaflet. The aortic valve opens well. The aortic valve is moderately calcified. There is trace aortic regurgitation. Tricuspid Valve: The tricuspid valve is normal in structure and function. There is trace tricuspid regurgitation. The right ventricular systolic pressure is estimated at 45 mmHg assuming a right atrial pressure of 8 mm Hg. Pulmonic Valve: The pulmonic valve is not well seen, but is grossly normal. There is mild pulmonic regurgitation. Great Vessels: The aortic root is normal size. The dimensions of the ascending aorta are normal. The IVC is dilated (diameter is greater than 2.1 cm) and it collapses less than 50% with a sniff. This suggests a high right atrial pressure of 15 mm Hg. The IVC is dilated (diameter is greater than 2.1 cm) yet it collapses greater than 50% with a sniff. This suggests a right atrial pressure of 8 mm Hg. Pericardium/ Pleura There is no pericardial effusion. There is no pleural effusion. MMode/2D Measurements & Calculations LVIDd: 5.1 cm LA dimension: 5.0 cm RA long axis Ao root diam LVIDs: 3.1 cm FS: 40.1 % LA A2 area: 24.4 cm RA area Aortic Jxn: 2.4 cm IVSd: 0.86 cm LA A4 area: 28.2 cm asc Aorta Diam LVPWd: 0.94 cm LA length (vol) : 18.1 cm RA vol Ao Arch Diam (Prox LA vol: 98.7 ml : 55.8 ml Trans): 3.0 cm LA vol index RA : 25.1 mm/ RVDd major IVC diam: 2.3 cm : 4.3 cm LV encarnacion. diameter/BSA LV sys. diameter/BSA RVD1 (basal) RVD2 (mid): 3.7 cm (cm/m^2): 2.3 (cm/m^2): 1.4 Doppler Measurements & Calculations Ao V2 max MV P1/2t: 67.9 msec Med Peak E' Matthew TR max matthew : 144.0 cm/sec : 305.8 cm/sec Ao max PG Lat Peak E' Matthew TR max PG : 8.3 mmHg : 13.2 cm/sec : 37.4 mmHg Ao mean PG PA V2 max : 4.7 mmHg : 116.9 cm/sec PA mean PG PA Accel Time : 0.08 sec MV V2 mean MV P1/2t max matthew Ao V2 mean PA V2 mean : 73.2 cm/sec : 101.0 cm/sec : 61.7 cm/sec MV mean PG MVA(P1/2t): 3.2 cm2 Ao V2 VTI: 30.4 cm MV V2 VTI : 21.8 cm Reading Physician:06:17 PM Assessment & Plan 76-year-old female with past medical history of A. (on Coumadin), diabetes mellitus type II, CAD, CHF, hypertension, COPD, chronic pain medication usage due to chronic pain syndrome was walking in her home when her left hip gave way causing her to fall onto her right side and she sustained a right hip fracture. # Acute right hip fracture. poa. - post right subtrochanteric femur fracture intramedullary nailing on 07/19/16 - appreciate ortho consult. will f/u w/ recs - pt minimally cooperative with PT so far due to ongoing pain - discussed w/ patient regarding importance of pushing herself to work with PT. 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 # possible continued pulmonary histoplasmosis - appreciate ID consult. will f/u w/ recs: - " three months of itraconazole 200 mg p.o. b.i.d. with close attention to her cardiac function to make sure her CHF does not worsen on itraconazole. If it were to worsen on itraconazole, consider a change to fluconazole or voriconazole or posaconazole." # colon cancer. present on admission - She has not yet been treated for the colon cancer, but per earlier notes plans underway to start chemo and radiation in the very near future. # Severe central canal stenosis as evidenced by the lumbar MRI - per Dr. Magallon's earlier notes: "Discussed this findings with orthopedics" - c/w supportive care as noted above # Chronic pain syndrome: # Anxiety: - Continue Xanax home with home medication # Chronic atrial fibrillation. rate controlled - c/w Lovenox and bridge to Coumadin (dose per pharmacy) # Chronic hypertension - Continue home medications. # CAD: - Continue home medications. - Echo showing possible small PFO - Aspirin restarted earlier during this hospital # COPD. stable - Plan to continue home medications # DM 2: - Sliding scale low coverage - HbA1c is 6.2 Disposition: possibly SNF 1-2 days VTE Prophylaxis: Sub-Q Enoxaparin, Theraputic Anticoag with Warfarin, SCDs, Other (sub-therapeutic currently on Coumadin) VTE Mechanical Devices: Intermittant Pneumatic CD Resuscitation Status: CPR: Attempt Resuscitation Time spent 35 min Jack Johnson Jul 22, 2016 18:40 tomorrow a.m. VTE Prophylaxis: Sub-Q Enoxaparin, Theraputic Anticoag with Warfarin, SCDs, Other (sub-therapeutic currently on Coumadin) VTE Mechanical Devices: Intermittant Pneumatic CD Resuscitation Status: CPR: Attempt Resuscitation Jack Johnson Jul 22, 2016 18:40 VTE Prophylaxis: Sub-Q Enoxaparin, Theraputic Anticoag with Warfarin, SCDs, Other (sub-therapeutic currently on Coumadin) VTE Mechanical Devices: Intermittant Pneumatic CD Resuscitation Status: CPR: Attempt Resuscitation Jack Johnson Jul 22, 2016 18:40
[2016-07-22] MEDS: 0.9% Sodium Chloride 1,000 ML IV SCH (20:40)
[2016-07-23] MEDS: Sodium Chloride LOK Flush 10 mL Syringe IV SCH ×3 (00:04→16:30)
[2016-07-23 00:16] VITALS: BP 110/65; PULSE 80; RESP 18; O2SAT 97
--- NOTE | 2016-07-23 01:47 | NUR ---
Advance Directives Pt began to express interest in more information about DNR and advance directives. Pt given the AD booklet, as well as informed of SW availability to go further if interested. Will leave note for SW to check in with pt, which pt is thankful for.
[2016-07-23 05:58] VITALS: BP 125/71; PULSE 85; RESP 16; O2SAT 95
--- NOTE | 2016-07-23 06:50 | NUR ---
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 PT STATED SHE NEEDED HER BRIEF CHANGED. PILLOWS UNDER LEGS WERE MOVED, CAREFULLY FROM UNDERNEATH PTS LEGS. PT STATED THAT SHE NEEDED PAIN MEDS PRIOR TO TURNING ET CHANGING. THIS COMMERCIAL BAKER HELPER EXPLAINED THAT HER BRIEF WAS WET; PT STATED SHE WANTED TO WAIT 30 MINUTES TO TURN AFTER BEING MEDICATED, THEN TURN AND BE CHANGED. RN NOTIFIED; WILL PASS ONTO DAYSHIFT.
[2016-07-23] MEDS: Ketorolac 15 mg/mL Inj IVPUSH PRN (06:59)
[2016-07-23 07:15] LABS: INR 1.12 ratio
[2016-07-23] MEDS: Insulin LISPRO 300 Unit/3 mL Inj SUBQ SCH ×2 (08:00→12:00)
--- NOTE | 2016-07-23 08:17 | PCM.PHAPRO ---
Progress Warfarin Management by Pharmacy: -Indication: afib -Home Dose: warfarin 6mg -Inr Goal: 2-3 -Coagulation Trends: Jul 20-Jul 21-Jul 22-Jul 23-Jun 1.43 1.10 1.04 1.06 1.12 -0.33 -0.06 0.02 0.06 HELD 6 MG 6 MG 7.5MG 7MG -Concurrent Anticoagulation: Enoxaparin 115mg subq [id number] Score: 6 -Plan: Day 4 of warfarin s/p hip surgery. pt refractory due to administration of phytonadione and ffp prior to surg. will give warfarin 7mg tonight and follow Amarilis Quezada [facility] Jul 23, 2016 08:17
[2016-07-23 08:35] LABS: BASOPHILS % (AUTO) 0.5 % (0-3); EOSINOPHILS % (AUTO) 8.6 % (0-5); MONOCYTES % (AUTO) 12.1 % (4-12); Mean Corpuscular Hemoglobin 27.5 pg (27.0-35.0); Mean Corpuscular Volume 88.2 fL (81-100); NEUTROPHILS % (AUTO) 47.9 % (40-74); Platelet Count 211 bil/L (150-400)
[2016-07-23 08:45] LABS: Magnesium 1.7 mg/dL (1.6-2.6)
[2016-07-23] MEDS: Senna-Docusate 8.6-50 mg Tablet PO SCH (09:33)
[2016-07-23] MEDS: Morphine ER 30 mg (MS Contin) Tablet PO SCH (09:33)
[2016-07-23] MEDS: hydrOXYzine Pamoate 25 mg Capsule PO PRN ×2 (10:23→16:30)
[2016-07-23] MEDS: HYDROcodone-APAP 10-325 mg PO PRN ×2 (10:23→16:30)
[2016-07-23 10:31] VITALS: PULSE 71
[2016-07-23 14:21] VITALS: BP 118/67; PULSE 81; RESP 18; O2SAT 96
--- NOTE | 2016-07-23 14:48 | NUR ---
Social Work Note -Readiness for Discharge Data: EMR reviewed. Pt is on day 5 of hospitalization for right hip fracture per H&P. Pt is POD 4. WILLIE spoke with Dario, jonnathan at [facility], who is agreeable to accepting pt at discharge with MD Tucker to follow. PT recommends SNF at this time to continue increasing stability and transfer ability. Pt and family agreeable to SNF discharge. Pt to discharge to [facility] with MD Tucker to follow. Paperwork and PASRR in chart. SW will continue to follow. Assessment: Pt who will benefit from SNF. Plan: PT continues to recommend SNF. Pt to discharge to [facility] with MD Tucker to follow. Paperwork and PASRR in chart. SW will continue to follow. TY Hernández
--- NOTE | 2016-07-23 16:11 | PCM.DIMED ---
Discharge Instructions Date of Service Jul 23, 2016 Dates of Hospitalization Jul 18, 2016 at 11:28 Discharge Diagnosis Discharge Diagnosis Right Hip Fracture Diet No restrictions (Patient claims her sugar is better with a regular diet???) Activity Outpatient Physical Therapy (Toe touch weight bearing right leg.) Call your provider Fever or Chills, Shortness of breath, Bleeding, Chest pain, Vomitting, Excessive diarrhea, Weakness (unilateral), Other Patient Instructions Follow-up Provider: Arabella Ball Follow-up with PCP in: 1 week Provider: Sourav Calvin DO Follow-up in: 2 weeks Josesito Humphries MD Jul 23, 2016 16:11
[2016-07-23] MEDS ORDERED: Senna/Docusate Sodium PO (16:21)
[2016-07-23] MEDS ORDERED: POLY17PO6 PO (16:21)
[2016-07-23] MEDS ORDERED: MORP-33 PO (16:21)
[2016-07-23] MEDS ORDERED: ITRA100C PO (16:21)
[2016-07-23] MEDS ORDERED: LOV120 SUBQ (16:21)
--- NOTE | 2016-07-23 16:26 | NUR ---
Scheduled BLS for 1700 via [facility], patient is going to [facility] and I also updated Millie in admissions at [facility]. Faxed discharge instructions to [facility], CHISELER HEAD will continue to watch for rest of orders and fax those as well. Updated CHISELER HEAD
--- NOTE | 2016-07-23 17:18 | NUR ---
Discharge Pt discharged to [facility] via ambulance at 1715 hrs. PIV removed intact. VSS. Pain controlled. All personal possessions sent with patient. Report called to Savannah at [facility]. New Rx sent with other pt information.
--- NOTE | 2016-07-23 23:38 | PCM.DC.MED ---
Discharge Summary Date of Service Jul 23, 2016 Dates of Hospitalization Date of Hospital Admission Jul 18, 2016 at 11:28 Date of Discharge: Jul 23, 2016 Providers: Admitting Physician: Megan Crespo DO Primary Care Physician: Arabella Ball Attending Physician: Megan Crespo DO Diagnosis at Time of Discharge Diagnosis at Time of Discharge Right Hip Fracture Procedures XRay, CTs & MRIs [facility] Diagnostic Imaging [place] [address] Patient Name: ANNABEL HUGHES MR#: [id number] Location: [facility] Ordering Phys: Bryant Cummings MD Date of Service: 07/18/16 1047 PROCEDURE: MRI LUMBAR SPINE WITHOUT CONTRAST ([id number]) INDICATIONS: New L Sciatica, anticoagulated TECHNIQUE: Noncontrast sagittal T1 spin echo and T2 fast echo, sagittal STIR, axial T1 and T2 fast spin echo through the lumbar spine. In cases with scoliosis, additional coronal T2 fast spin echo may be performed. COMPARISON: None. FINDINGS: Image quality: Excellent. Alignment and Curvature: There is trace L3 on L4 and L4-L5 retrolisthesis. There is convex right curvature of the lumbar spine; recommend correlation with weight-bearing plain film radiographs to exclude scoliosis. Bone Marrow: Changes noted adjacent to the L2-L3, L3-L4, L4-L5 and L5-S1 discs.. No acute vertebral body compression fractures. Spinal Cord: Conus medullaris terminates at the L1 level. Visualized cord demonstrates normal signal and size. Paraspinous Soft Tissues: No paravertebral masses. L1-L2: Loss of disc signal. Mild bilateral facet hypertrophy. Moderate ligamentum flavum hypertrophy. Mild narrowing of the central canal secondary to disc disease mild bilateral neural foraminal narrowing secondary to disc and facet disease. No neural impingement. L2-L3: Loss of disc signal. Minimal, diffuse disc bulge. Moderate facet and moderate ligamentum flavum hypertrophy. Mild to moderate narrowing of the central canal secondary to disc disease and posterior element hypertrophy. Mild bilateral neuroforaminal narrowing secondary to disc and facet disease. No neural impingement. Focal high density zone in the anterior annulus compatible with a fissure. L3-L4: Loss of disc signal and height. Moderate, diffuse disc bulge. Moderate facet and moderate ligamentum flavum hypertrophy. Moderate to severe narrowing of the central canal secondary to disc disease and posterior element hypertrophy. Moderate bilateral neuroforaminal narrowing secondary to disc and facet disease. Fluid signal noted in the intervertebral disc space which can represent reactive change versus earliest manifestation of discitis; please correlate clinical and laboratory data. L4-L5: Loss of disc signal. Mild, diffuse disc bulge. Large central disc protrusion superimposed on diffuse disc bulge. Moderate facet and moderate ligamentum flavum hypertrophy. Severe central stenosis secondary to disc disease and posterior element hypertrophy. Severe right and [id number]-um-[id number] left neural foraminal narrowing secondary to disc and facet disease. Focal high density zone in the anterior annulus compatible with a fissure. L5-S1: Loss of disc signal. Mild, diffuse disc bulge with small central disc protrusion superimposed on diffuse disc bulge. Severe facet and moderate ligamentum flavum hypertrophy. Moderate narrowing of the central canal secondary to disc disease and posterior element hypertrophy. Severe right and mild left neural foraminal narrowing secondary to disc and facet disease. IMPRESSION: 1. Convex right curvature recommend weight-bearing plain film radiographs of the lumbar spine when clinically feasible to exclude scoliosis. 2. Grade I L3-L4 and L4-5 degenerative spondylolisthesis. 3. Multilevel degenerative disc disease. 4. Multilevel facet arthropathy. 5. Severe L4-L5 central canal stenosis. Moderate to severe L3-L4 central canal narrowing. Moderate L5-S1 central are present mild L1-L2 and L2-L3 central canal narrowing. 6. Severe right and moderate severe left L4-L5 neural foramen. Severe right and mild left L5-S1 neural foraminal narrowing. Moderate bilateral L2-L4 neural foraminal narrowing. Mild bilateral L1-L2 and L2-L3 neuroforaminal narrowing. 7. L2-L3 and L4-L5 disc annulus fissures. 8. Fluid signal in the L3-L4 disc space likely representing a reactive change, however finding is nonspecific and correlation with clinical laboratory data is recommended to exclude a very early manifestation of discitis. Dictated by: Daniela Diane MD, PhD on 07/18/2016 at 15:04 Approved by: Daniela Diane MD, PhD on 07/18/2016 at 15:12 [facility] [place] [address] Patient Name: ANNABEL HUGHES MR#: [id number] Location[place] [facility] Ordering Phys: Bryant Cummings MD Date of Service: 07/18/16 1013 PROCEDURE: X-RAY CHEST ONE VIEW ([id number]) INDICATIONS: HIP FRACTURE TECHNIQUE: One view of the chest was acquired. COMPARISON: [facility], CR, XR CHEST 1V PORTABLE, 03/25/2016, 1: 24 AM. [facility], CT, CT BIOPSY LUNG, 06/10/2016, 1:47 PM. [facility], CR, XR CHEST 1V PORTABLE, 06/11/2016, 7:41 AM. FINDINGS: Surgical changes and devices: Surgical clips at the gastroesophageal junction. Lungs and pleura: No pleural effusions or pneumothorax. Lungs are clear. Elevation of the right hemidiaphragm is stable compared to prior examination. Mediastinum: Mediastinal contours appear normal. Heart size is normal. Bones and chest wall: No suspicious bony lesions. Overlying soft tissues appear unremarkable. IMPRESSION: No acute cardiopulmonary disease process. Dictated by: Daniela Diane MD, PhD on 07/18/2016 at 10:43 Approved by: Daniela Diane MD, PhD on 07/18/2016 at 10:44 [facility] Diagnostic [place] [address] Patient Name: ANNABEL HUGHES MR#: [id number] Location[place] [facility] Ordering Phys: URIAH TIMMONS MD Date of Service: 07/18/16 0953 PROCEDURE: X-RAY PELVIS W/LAT HIP (RT) ([id number]) INDICATIONS: fall; rt hip pain TECHNIQUE: AP pelvis with lateral view(s) of the right hip(s). COMPARISON: None. FINDINGS: Bones: Displaced right subtrochanteric hip fracture noted. Bilateral hip osteoarthritic degenerative changes are noted. Pelvic ring appears intact. No suspicious bony lesions. Soft tissues: The visualized bowel gas pattern is normal. No suspicious soft tissue calcifications. Bilateral groin surgical clips noted. IMPRESSION: Right subtrochanteric femur fracture. Dictated by: Daniela Diane MD, PhD on 07/18/2016 at 10:42 Approved by: Daniela Diane MD, PhD on 07/18/2016 at 10:43 ECG 12 Lead Rate controlled A. fib Cardiac Echo Impression Cardiac echo is pending [facility] [place] [address] Patient Name: ANNABEL HUGHES MR#: [id number] Location: [facility] Ordering Phys: Megan Crespo DO Date of Service: 07/20/16 1235 [facility] [address] [place] [address] Echocardiogram Report Name: ANNABEL HUGHES KStudy Date: 07/20/2016 Height: 67 in Hospital Exam Location: [facility] Weight: 249 lb Gender: Female BSA: 2.2 m2 : 1940 Age: 76 yrs BP: 114/69 mmHg Reason For Study: Arrhythmia Ordering Physician: [facility] Performed By: Rosauar Jacob Referring Physician: ELISA Ball Interpretation Summary Afib with controlled rate. Normal LV size and wall thickness; normal wall motion and LV systolic function. EF is 60-65%. Severe LA enlargement; otherwise normal chamber sizes. There is a possible TINY PFO present with a very small amount of left to right shunting. Mitral valve leaflets are moderately thickened; there is moderate MAC without associated MR. Aortic valve leaflets are moderately calcified and thickened (especially the non-coronary leaflet). There is no regurgitation or stenosis. No prior echo is available for comparison. Procedure: A two-dimensional transthoracic echocardiogram with color flow and Doppler was performed. The study quality was technically adequate. There is no prior echocardiogram noted for this patient. The heart rate ranged between 66-77 bpm during the study. Left Ventricle: The left ventricle is normal in size, wall thickness, and systolic function without any focal wall motion abnormalities. The ejection fraction is estimated to be 60-65%. Diastolic function could not be accurately assessed due to unobtainable data. Right Ventricle: The right ventricle is normal in size, thickness and function. Atria: The left atrium is moderately dilated. Right atrial size is normal. Probable PFO identified, with left to right shunt. Mitral Valve: The mitral valve leaflets appear moderately thickened, but open well. The mitral valve leaflets are mildly calcified. There is moderate mitral annular calcification. There is no mitral regurgitation noted. Aortic Valve: The aortic valve is trileaflet. The aortic valve opens well. The aortic valve is moderately calcified. There is trace aortic regurgitation. Tricuspid Valve: The tricuspid valve is normal in structure and function. There is trace tricuspid regurgitation. The right ventricular systolic pressure is estimated at 45 mmHg assuming a right atrial pressure of 8 mm Hg. Pulmonic Valve: The pulmonic valve is not well seen, but is grossly normal. There is mild pulmonic regurgitation. Great Vessels: The aortic root is normal size. The dimensions of the ascending aorta are normal. The IVC is dilated (diameter is greater than 2.1 cm) and it collapses less than 50% with a sniff. This suggests a high right atrial pressure of 15 mm Hg. The IVC is dilated (diameter is greater than 2.1 cm) yet it collapses greater than 50% with a sniff. This suggests a right atrial pressure of 8 mm Hg. Pericardium/ Pleura There is no pericardial effusion. There is no pleural effusion. MMode/2D Measurements & Calculations LVIDd: 5.1 cm LA dimension: 5.0 cm RA long axis Ao root diam LVIDs: 3.1 cm FS: 40.1 % LA A2 area: 24.4 cm RA area Aortic Jxn: 2.4 cm IVSd: 0.86 cm LA A4 area: 28.2 cm asc Aorta Diam LVPWd: 0.94 cm LA length (vol) : 18.1 cm RA vol Ao Arch Diam (Prox LA vol: 98.7 ml : 55.8 ml Trans): 3.0 cm LA vol index RA : 25.1 mm/ RVDd major IVC diam: 2.3 cm : 4.3 cm LV encarnacion. diameter/BSA LV sys. diameter/BSA RVD1 (basal) RVD2 (mid): 3.7 cm (cm/m^2): 2.3 (cm/m^2): 1.4 Doppler Measurements & Calculations Ao V2 max MV P1/2t: 67.9 msec Med Peak E' Matthew TR max matthew : 144.0 cm/sec : 305.8 cm/sec Ao max PG Lat Peak E' Matthew TR max PG : 8.3 mmHg : 13.2 cm/sec : 37.4 mmHg Ao mean PG PA V2 max : 4.7 mmHg : 116.9 cm/sec PA mean PG PA Accel Time : 0.08 sec MV V2 mean MV P1/2t max matthew Ao V2 mean PA V2 mean : 73.2 cm/sec : 101.0 cm/sec : 61.7 cm/sec MV mean PG MVA(P1/2t): 3.2 cm2 Ao V2 VTI: 30.4 cm MV V2 VTI : 21.8 cm Reading Physician:06:17 PM Brief History This is a pleasant 76-year-old female with past medical history of A. fib for which she is currently on Coumadin, diabetes mellitus type II for which she is not on any particular diet, CAD, CHF, hypertension, COPD, chronic pain medication usage due to chronic pain syndrome is presenting with right hip subtrochanteric femoral fracture as seen on x-ray of pelvis in the ER. She states that she has had issues with left leg and sciatica for a long time now and she was trying to walk and fell on her right side. Pain was 10 out of 10 but in the ER it was 8 out of 10. The patient fell on her right side shoulder and chest were affected as well. She usually tries to walk with a walker at home. Lives with son and his family. She says that she has suffered several falls but none as bad as this one and also none in the last 6 months. In the ER INR was 2.5, vitamin K by mouth 10 mg was given. Chest x-ray was showed no acute disease. EKG showed rate controlled A. fib. MRI of lumbar spine showed scoliosis, Grade I L3-L4 and L4-5 degenerative spondylolisthesis. ,Multilevel degenerative disc disease, Multilevel facet arthropathy. Severe L4- L5 central canal stenosis. Moderate to severe L3-L4 central canal narrowing. Moderate L5-S1 central are present mild L1-L2 and L2-L3 central canal narrowing. Severe right and moderate severe left L4-L5 neural foramen. Severe right and mild left L5-S1 neural foraminal narrowing. Moderate bilateral L2-L4 neural foraminal narrowing. Mild bilateral L1-L2 and L2-L3 neuroforaminal narrowing. L2-L3 and L4-L5 disc annulus fissures. Fluid signal in the L3-L4 disc space likely representing a reactive change, however finding is nonspecific and correlation with clinical laboratory data is recommended to exclude a very early manifestation of discitis. CBC and CMP are within normal. Vital signs are stable. Patient is admitted to the [facility] team for medical management of her right femur subtrochanteric fracture with orthopedic consult. Hospital Course The patient is a 76-year-old female with past medical history of A. (on Coumadin ), diabetes mellitus type II, CAD, CHF, hypertension, COPD, chronic pain medication usage due to chronic pain syndrome was walking in her home when her left hip gave way causing her to fall onto her right side and she sustained a right hip fracture. # Acute right hip fracture. poa. - Patient is status post right subtrochanteric femur fracture intramedullary nailing on 07/19/16 - We appreciate ortho consult. will f/u w/ recs - The patient is minimally cooperative with PT so far due to ongoing pain and weakness - We have discussed with the patient regarding importance of pushing herself to work with PT. the patient agrees - change [employer] Dilaudid to PO pain meds - c/w PT - VT prophylaxis: As she is deemed a high risk candidate we will initiate bridging her with enoxaparin 113 units twice a day enoxaparin until therapeutic INR is achieved. Patient will need bridging therapy due to history of receiving vitamin K. # History of pulmonary histoplasmosis - We appreciate ID consult. will f/u w/ recs: - " three months of itraconazole 200 mg p.o. b.i.d. with close attention to her cardiac function to make sure her CHF does not worsen on itraconazole. If it were to worsen on itraconazole, consider a change to fluconazole or voriconazole or posaconazole." # Colon cancer. present on admission - She has not yet been treated for the colon cancer, but per earlier notes plans underway to start chemo and radiation in the very near future. # Severe central canal stenosis as evidenced by the lumbar MRI - As per Dr. Magallon's earlier notes: "Discussed this findings with orthopedics" - We will continue with supportive care as noted above # Chronic pain syndrome: # Anxiety: - Continue Xanax home with home medication # Chronic atrial fibrillation. rate controlled - We will continue with Lovenox and bridge to Coumadin (dose per pharmacy) # Chronic hypertension - Continue home medications. # CAD: - Continue home medications. - Echo showing possible small PFO - Aspirin restarted earlier during this hospital # COPD. stable - Plan to continue home medications # DM 2: - Sliding scale low coverage - HbA1c is 6.2 Disposition: We will transfer to [facility] today. She is to continue rehabilitation over there. Exam Vital Signs (Last) Date Time Temp Pulse Resp B/P Pulse Ox O2 Delivery O2 Flow Rate FiO2 07/23/16 14:21 36.7 81 18 118/67 96 Room Air 07/20/16 15:18 2.00 Exam General: The patient is in no apparent distress laying supine in bed. HEENT: Head is atraumatic and normocephalic. Eyes: Pupils are equally round and reactive to light and accommodation. Extraocular muscles are intact. Sclera are white, anicteric. Subconjunctival mucosa is slightly pale. Ears and nose are unremarkable. Oropharynx: There is no mucosal lesions, there is no thrush, there is no pharyngitis. Neck: Is supple, there are no nodes, or masses or tenderness. Chest: Is clear to auscultation and percussion. There are no rales, rhonchi, wheezes or rubs. Heart: Rate, rhythm is regular. There is no murmur, rub or gallop. Abdomen: Good bowel sounds are present. Abdomen is morbidly obese, soft, nontender, no organomegaly or masses were appreciated. Extremities: Are symmetrical and well perfused. There is no edema, there is no cellulitis, no rash. Right hip incision is stable. Neurologic: There are no focal neurological deficits. Cranial nerves II through XII are intact. There are no sensory or motor deficits. Psychiatric: Patients mood is calm and shows no sign of agitation. Genital: Deferred Rectal: Deferred Test 07/18/16 10:51 07/18/16 11:12 07/19/16 04:45 07/19/16 06:25 Urine Color Straw (YELLOW) Urine Appearance Hazy (CLEAR,HAZY) Urine pH 5.5 (5.0-8.0) Urine Specific [place] 1.015 (1.003-1.035) Urine Protein Negativemg/dL (NEG,TRACE) Urine Glucose (UA) Negativemg/dL (NEGATIVE) Urine Ketones Negativemg/dL (NEGATIVE) Urine Occult Blood Negative (NEGATIVE) Urine Nitrite Negative (NEGATIVE) Urine Bilirubin Negative (NEGATIVE) Urine Urobilinogen Normalmg/dL (NORMAL) Urine Leukocyte Esterase Negative (NEGATIVE) Urine RBC 0-2/hpf (0-2) Urine WBC 0-5/hpf (0-5) Urine Epithelial Cells Occasional/hpf (NONE-MOD) Urine Crystals None seen (NONE SEEN) Urine Bacteria None/hpf (NONE-FEW) Urine Hyaline Casts 5/20/lpf (NONE) Urine Granular Casts None seen (NONE SEEN) Urine Waxy Casts None seen (NONE SEEN) Urine Red Blood Cell Casts None seen (NONE SEEN) Urine White Blood Cell Casts None seen (NONE SEEN) Urine Mucus Present (None Seen) Urine Trichomonas None seen (NONE SEEN) Urine Yeast None (NONE SEEN) Urinalysis Comment None Urine Culture Reflexed Not indicated Hemoglobin A1c 6.2% (4.8-5.6) Total Creatine Kinase 101U/L (21-215) Hold Javed Top Tube Received (Received) Triglycerides Level 73mg/dL (0-149) Cholesterol Level 114mg/dL (100-199) LDL Cholesterol, Calculated 43.400mg/dL (0-99) VLDL Cholesterol 14.600mg/dL HDL Cholesterol 56mg/dL (>39) Cholesterol/HDL Ratio 2.04 (0.0-4.4) Activated Partial Thromboplast Time 29.4sec (22.8-33.0) Test 07/23/16 06:30 White Blood Count 5.6th/mm3 (3.8-10.1) Red Blood Count 3.38mil/mm3 (3.90-5.20) Hemoglobin 9.3g/dL (12.0-15.6) Hematocrit 29.8% (35.0-46.0) Mean Corpuscular Volume 88.2fL (81-100) Mean Corpuscular Hemoglobin 27.5pg (27.0-35.0) Mean Corpuscular Hemoglobin Concent 31.2% (32.0-37.0) Red Cell Distribution Width 15.7% (12.3-15.4) Platelet Count 211bil/L (150-400) Neutrophils (%) (Auto) 47.9% (40-74) Lymphocytes (%) (Auto) 30.7% (14-46) Monocytes (%) (Auto) 12.1% (4-12) Eosinophils (%) (Auto) 8.6% (0-5) Basophils (%) (Auto) 0.5% (0-3) Prothrombin Time 12.0sec (8.1-12.5) Prothromb Time International Ratio 1.12ratio Sodium Level 141mEq/L (134-144) Potassium Level 4.7mEq/L (3.5-5.2) Chloride Level 103mEq/L (97-108) Carbon Dioxide Level 25mmol/L (18-29) Blood Urea Nitrogen 26mg/dL (8-27) Creatinine 0.87mg/dL (0.57-1.00) Estimat Glomerular Filtration Rate 91mL/min (>59) Glucose Level 114mg/dL (60-99) Calcium Level 8.6mg/dL (8.5-10.1) Magnesium Level 1.7mg/dL (1.6-2.6) Total Bilirubin 0.9mg/dL (0.0-1.2) Aspartate Amino Transf (AST/SGOT) 46U/L (0-50) Alanine Aminotransferase (ALT/SGPT) 18U/L (0-32) Alkaline Phosphatase 224U/L (25-165) Total Protein 4.9g/dL (6.4-8.4) Albumin 2.6g/dL (3.4-5.0) Discharge Medications Discharge Medications ([Senna/Docusate Sodium]) 1 TABLET TABLET 1 TABLET PO BID Prescribed by: CRYSTAL HUMPHRIES MD Aspirin (Aspirin) 81 Mg Tablet 81 MG PO DAILY (Reported) Atorvastatin (Lipitor) 10 Mg Tab 10 MG PO HS (Reported) Cyanocobalamin (Vitamin B12) 500 Mcg Tablet 1,000 MCG PO DAILY (Reported) Enoxaparin (Lovenox) 120 Mg/0.8 Ml Syringe 115 MG SUBQ Q12H Prescribed by: CRYSTAL HUMPHRIES MD Ferrous Sulfate (Ferrous Sulfate) 325 Mg Tablet 325 MG PO DAILY (Reported) Furosemide (Lasix) 40 Mg Tablet 40 MG PO DAILY (Reported) Gabapentin (Gabapentin) 300 Mg Capsule 300 MG PO DAILY (Reported) 1 every three days Itraconazole (Itraconazole) 100 Mg Capsule 100 MG PO BIDWM Prescribed by: CRYSTAL HUMPHRIES MD Lisinopril (Lisinopril) 5 Mg Tablet 5 MG PO DAILY (Reported) Metformin (Metformin) 500 Mg Tablet 500 MG PO Evening (Reported) Metoprolol Tartrate (Metoprolol Tartrate) 25 Mg Tablet 12.5 MG PO BID (Reported ) Morphine Sulfate ER (Morphine Sulfate ER) 30 Mg Tablet 30 MG PO BID Prescribed by: CRYSTAL HUMPHRIES MD Ropinirole (Ropinirole) 2 Mg Tablet 2 MG PO HS (Reported) Warfarin Sodium (Warfarin Sodium) 6 Mg Tablet 6 MG PO DAILY (Reported) As needed Albuterol Sulfate (Proair Respiclick) 90 Mcg Aer.pow.ba 2 PUFFS IH QID PRN PRN For Shortness of Breath (Reported) Hydrocodone-Acetaminophen 10-325 mg (Hydrocodone-Acetaminophen 10-325 mg) 1 Each Tablet 2 TABLET PO Q4H PRN PRN For Pain (Reported) Polyethylene Glycol 3350 (Miralax) 17 Gm Powd.pack 17 GM PO DAILY PRN PRN For Constipation Prescribed by: CRYSTAL HUMPHRIES MD Zolpidem (Ambien) 10 Mg Tablet 10 MG PO HS PRN PRN For Insomnia (Reported) diphenhydrAMINE HCl (Benadryl) 25 Mg Capsule 25 MG PO PRN . (Reported) Followup Plan Disposition: Patient is being discharged to [facility] Diet: No restrictions (Patient claims her sugar is better with a regular diet???) Discharge Activity: Outpatient Physical Therapy (Toe touch weight bearing right leg.) Follow-up Provider: Arabella Ball Follow-up with PCP in: 1 week Provider: Sourav Calvin DO Follow-up in: 2 weeks Time spent Time spent on discharging this patient was greater than 35 minutes, over half of which was involved in counseling and coordination of care. Josesito Humphries MD Jul 23, 2016 23:38
== END 2016-07-23 17:15 | DRG 480 ==
LOC: SED 09:05 → EDUNIT# 09:05 → EDBD 09:05 → OBSVTOIN 11:28 → OFED 11:28 → OSC 12:37
PROVIDERS: ADMIT Family Medicine; ATTEND Family Medicine
PROC: 30233K1 Transfusion of Nonautologous Frozen Plasma into Peripheral Vein, Percutaneous Approach (ICD-10-PCS; 2016-07-18)
PROC: 0QS634Z Reposition Right Upper Femur with Internal Fixation Device, Percutaneous Approach (ICD-10-PCS; principal; 2016-07-19 10:00)
DX: S72.21XA Displaced subtrochanteric fracture of right femur, initial encounter for closed fracture (principal); B39.2 Pulmonary histoplasmosis capsulati, unspecified; F11.20 Opioid dependence, uncomplicated; I10 Essential (primary) hypertension; J44.9 Chronic obstructive pulmonary disease, unspecified; Z79.01 Long term (current) use of anticoagulants; I48.2 Chronic atrial fibrillation; E11.9 Type 2 diabetes mellitus without complications; I25.10 Atherosclerotic heart disease of native coronary artery without angina pectoris; G89.4 Chronic pain syndrome; W18.39XA Other fall on same level, initial encounter; Z79.4 Long term (current) use of insulin; F17.210 Nicotine dependence, cigarettes, uncomplicated; F41.9 Anxiety disorder, unspecified; M48.06 Spinal stenosis, lumbar region; I50.9 Heart failure, unspecified